=== PATIENT | male | born 1970 | race Caucasian/White ===

== ENCOUNTER 2016-10-31 18:27 | Inpatient (IN) | payer OTHER ==
[~2016-10-31] VITALS: Ht 182.9 cm; Wt 69.0 kg
[2016-10-31 18:39] VITALS: O2SAT 98
[2016-10-31 18:40] VITALS: O2SAT 98
[2016-10-31] MEDS ORDERED: levETIRAcetam 1000 MG INJ 100 ML IV ONE (18:45)
[2016-10-31] MEDS ORDERED: IOHEXOL 350 MG/ML 10 ML VIAL (for RAD DIAG) IV ONE (18:48)
--- NOTE | 2016-10-31 18:50 | RADRPT ---
EXAM DATE/TIME: 10/31/2016 18:22 [facility] COMPARISON: No previous studies available for comparison. INDICATIONS : Evaluate pelvis for trauma Trauma Alert MEDICAL HISTORY : None. SURGICAL HISTORY : None. ENCOUNTER: Initial ACUITY: 1 day PAIN SCORE: Non-responsive. LOCATION: Pelvis FINDINGS: A single frontal view of the pelvis demonstrates no evidence of fracture. The bony pelvic ring is in tact. Bony mineralization is normal. The soft tissues are intact. CONCLUSION: Artifact from backboard otherwise negative for fracture.. Luis Oro MD FACR on October 31, 2016 at 18:48 Board Certified Radiologist. This report was verified electronically.
--- NOTE | 2016-10-31 18:51 | RADRPT ---
EXAM DATE/TIME: 10/31/2016 18:22 [facility] COMPARISON: No previous studies available for comparison. INDICATIONS : Evaluate chest for trauma, fell Trauma Alert MEDICAL HISTORY : None. SURGICAL HISTORY : None. ENCOUNTER: Initial ACUITY: 1 day PAIN SCORE: Non-responsive. LOCATION: chest FINDINGS: A single view of the chest demonstrates the lungs to be symmetrically aerated without evidence of mas s, infiltrate or effusion. The cardiomediastinal contours are unremarkable. Osseous structures are intact. CONCLUSION: Artifact from backboard otherwise negative for pneumothorax. Luis Oro MD FACR on October 31, 2016 at 18:49 Board Certified Radiologist. This report was verified electronically.
[2016-10-31 18:52] LABS: I-STAT POTASSIUM 4.3 MMOL/L (3.5-4.9)
[2016-10-31 18:54] LABS: AUTOMATED NEUTROPHIL # 7.4 TH/MM3 (1.8-7.7); BASOPHIL # 0.1 TH/MM3 (0-0.2); BASOPHIL % 0.5 % (0.0-2.0); EOSINOPHIL # 0.2 TH/MM3 (0-0.4); EOSINOPHIL % 1.5 % (0.0-4.0); HEMATOCRIT 39.3 % (39.0-51.0); HEMO FLAGS DIFF FINAL; LYMPH % 24.8 % (9.0-44.0); LYMPHOCYTE # 2.7 TH/MM3 (1.0-4.8); MEAN CELL VOLUME 80.4 FL (80.0-100.0); MEAN CORPUSCULAR HEMOGLOBIN 26.6 PG (27.0-34.0); MONO % 6.2 % (0.0-8.0); PLATELET COUNT 426 TH/MM3 (150-450); RED CELL DISTRIBUTION WIDTH 17.8 % (11.6-17.2)
--- NOTE | 2016-10-31 18:58 | RADRPT ---
EXAM DATE/TIME: 10/31/2016 18:39 [facility] COMPARISON: No previous studies available for comparison. INDICATIONS : Trauma, seizure fell out of bunkbed. RADIATION DOSE: 56.35 CTDIvol (mGy) MEDICAL HISTORY : Non-responsive. SURGICAL HISTORY : Non-responsive. ENCOUNTER: Initial ACUITY: 1 day PAIN SCALE: Non-responsive LOCATION: cranial TECHNIQUE: Multiple contiguous axial images were obtained of the head. Using automated exposure control and adj ustment of the mA and/or kV according to patient size, radiation dose was kept as low as reasonably a chievable to obtain optimal diagnostic quality images. DICOM format image data is available electro nically for review and comparison. FINDINGS: CEREBRUM: The ventricles are normal for age. No evidence of midline shift, mass lesion, hemorrhage or acute in farction. No extra-axial fluid collections are seen. POSTERIOR FOSSA: The cerebellum and brainstem are intact. The 4th ventricle is midline. The cerebellopontine angle i s unremarkable. EXTRACRANIAL: The visualized portion of the orbits is intact. SKULL: The calvaria is intact. No evidence of skull fracture. CONCLUSION: Negative for acute traumatic injury. Luis Oro MD FACR on October 31, 2016 at 18:56 Board Certified Radiologist. This report was verified electronically.
--- NOTE | 2016-10-31 19:01 | PD ---
HPI Chief Complaint: Trauma (Alert) Time Seen by Provider: 18:34 Travel History International Travel<30 days: No Contact w/Intl Traveler<30days: No Traveled to known affect area: No History of Present Illness HPI This is a 54-[id number]-uktv-old male. Was brought in as a trauma alert from the nursing home. The patient had a seizure while in his bunk bed. He probably fell 6 feet from the bunk bed and was postictal when he got up to stand and walk, he walked out of his room and flipped over the balcony: 10 feet below. He reports pain in his head neck bilateral upper shoulders and upper thoracic spine and lower thoracic spine. There is weakness in his bilateral upper extremities. Trauma alert was called for suspected spinal cord injury. Allergies-Medications (Allergen,Severity, Reaction): Coded Allergies: No Known Allergies (Unverified , 10/31/16) Review of Systems Except as stated in HPI: all other systems reviewed are Neg General / Constitutional: No: Fever, Chills HENT: Positive: Headaches, Neck Pain Cardiovascular: No: Chest Pain or Discomfort, Palpitations, Irregular Rhythm Gastrointestinal: No: Nausea, Vomiting, Abdominal Pain Musculoskeletal: Positive: Weakness, Pain (bilateral upper extremities bilateral shoulders upper and lower back) Neurologic: Positive: Weakness (bilateral upper extremities), Headache, Seizures, Sensory Disturbance (bilateral upper extremities) Physical Exam Narrative GENERAL: Well developed well-nourished male in C-spine backboard immobilization SKIN: Focused skin assessment warm/dry. HEAD: Atraumatic. Normocephalic. EYES: No scleral icterus. No injection or drainage. ENT: No nasal bleeding or discharge. Mucous membranes pink and moist. NECK: Trachea midline. C-collar immobilized. CARDIOVASCULAR: Regular rate and rhythm. No murmur appreciated. RESPIRATORY: No accessory muscle use. Clear to auscultation. Breath sounds equal bilaterally. GASTROINTESTINAL: Abdomen soft, non-tender, nondistended. Hepatic and splenic margins not palpable. MUSCULOSKELETAL: No obvious deformities. No clubbing. No cyanosis. No edema. BACK: On log roll, patient has subjective tenderness in his mid thoracic and lower lumbar spine. There is no bony step-offs. NEUROLOGICAL: Awake and alert. Patient has 3 out of 5 strength in his bilateral upper extremity is. The patient also has decreased sensation in his thumb and first finger of his left arm. Data Data Last Documented VS Vital Signs Date Time Temp Pulse Resp B/P Pulse Ox O2 Delivery O2 Flow Rate FiO2 10/31/16 18:40 98 2.00 10/31/16 18:39 Nasal Cannula Orders Fentanyl Inj (Fentanyl Inj) (10/31/16 18:32) I-Stat Profile (10/31/16 18:35) I-Stat Creatinine (10/31/16 18:35) Complete Blood Count With Diff (10/31/16 18:35) Prothrombin Time / Inr (Pt) (10/31/16 18:35) Act Partial Throm Time (Ptt) (10/31/16 18:35) Type And Screen (10/31/16 18:35) Chest, Single Ap (10/31/16 18:35) Ct Brain W/O Iv Contrast(Rout) (10/31/16 18:35) Ct Cerv Spine W/O Contrast (10/31/16 18:35) Ct Abd/Pel W Iv Contrast(Rout) (10/31/16 18:35) Ct Thorax/ Chest W Iv Contrast (10/31/16 18:35) Ct Thor Spine W/O Contrast (10/31/16 18:35) Ct Lumb Spine W/O Contrast (10/31/16 18:35) Iv Access Insert/Monitor (10/31/16 18:35) Ecg Monitoring (10/31/16 18:35) Oximetry (10/31/16 18:35) Oxygen Administration (10/31/16 18:35) Levetiracetam 1000 Mg Inj (Keppra 1000 M (10/31/16 18:45) Pelvis, Ap Only (Routine) (10/31/16 ) Mri C Spine W/O Contrast (10/31/16 18:57) Mri T Spine W/O Contrast (10/31/16 18:57) Mri L Spine W/O Contrast (10/31/16 18:57) Admit Order (Ed Use Only) (10/31/16 18:59) Labs Laboratory Tests Test 10/31/16 18:31 White Blood Count 11.0 TH/MM3 Red Blood Count 4.90 MIL/MM3 Hemoglobin 13.0 GM/DL Bedside Hemoglobin 14.3 G/DL Hematocrit 39.3 % Bedside Hematocrit 42.0 % Mean Corpuscular Volume 80.4 FL Mean Corpuscular Hemoglobin 26.6 PG Mean Corpuscular Hemoglobin 33.0 % Concent Red Cell Distribution Width 17.8 % Platelet Count 426 TH/MM3 Mean Platelet Volume 8.1 FL Neutrophils (%) (Auto) 67.0 % Lymphocytes (%) (Auto) 24.8 % Monocytes (%) (Auto) 6.2 % Eosinophils (%) (Auto) 1.5 % Basophils (%) (Auto) 0.5 % Neutrophils # (Auto) 7.4 TH/MM3 Lymphocytes # (Auto) 2.7 TH/MM3 Monocytes # (Auto) 0.7 TH/MM3 Eosinophils # (Auto) 0.2 TH/MM3 Basophils # (Auto) 0.1 TH/MM3 CBC Comment DIFF FINAL Differential Comment Bedside Sodium 139 MMOL/L Bedside Potassium 4.3 MMOL/L Bedside Chloride 99 MMOL/L Bedside Blood Urea Nitrogen 12 MG/DL Bedside Creatinine 0.9 MG/DL Bedside Glucose 173 MG/DL Blood Type A POSITIVE MDM Medical Screen Exam Complete: Yes Emergency Medical Condition: Yes Differential Diagnosis Spinal cord injury versus central cord syndrome versus thoracic spine fracture versus lumbar spine fracture versus intracranial hemorrhage versus seizure Narrative Course Additional male who is brought in from the nursing home as a trauma alert. The patient apparently sees fell out of his bunkbed then staggered over and rolled off the rail falling down to the ground floor. The patient reports weakness of his bilateral upper extremities. CT scan of brain and spine are negative for acute fracture or injury. MRI of the C-spine, T-spine, L-spine are pending at this time. The patient will be admitted to the trauma service. The patient will be cared for by Dr. Son's, trauma surgeon who was present when he arrived. Trauma Alert - Level One Trauma Alert Level One: Full trauma team activate Time Surgeon Summoned: 18:15 Diagnosis Diagnosis: Primary Impression: suspected spinal cord injury Additional Impressions: Seizure mechanical fall of 10 feet Admitting Physician Requests: Admit Arthur Gomes MD Oct 31, 2016 19:01
[2016-10-31 19:10] LABS: APTT (PATIENT) 22.8 SEC (24.3-30.1); PROTHROMBIN TIME - PATIENT 10.9 SEC (9.8-11.6)
[2016-10-31] MEDS ORDERED: HYDROmorphone HCL PF 1 MG/ML VIAL ONE (19:10)
--- NOTE | 2016-10-31 19:13 | RADRPT ---
EXAM DATE/TIME: 10/31/2016 18:43 [facility] COMPARISON: No previous studies available for comparison. INDICATIONS : Trauma, seizure fell out of bunkbed. RADIATION DOSE: 45.18 CTDIvol (mGy) MEDICAL HISTORY : Non-responsive. SURGICAL HISTORY : Non-responsive. ENCOUNTER: Initial ACUITY: 1 day PAIN SCALE: Non-responsive LOCATION: neck TECHNIQUE: Volumetric scanning of the cervical spine was performed. Multiplanar reconstructions in the sagittal, coronal and oblique axial planes were performed. Using automated exposure control and adjustment o f the mA and/or kV according to patient size, radiation dose was kept as low as reasonably achievable to obtain optimal diagnostic quality images. DICOM format image data is available electronically f or review and comparison. FINDINGS: VERTEBRAE: Normal vertebral body height. ALIGNMENT: No evidence of subluxation. C2-C3: The bony spinal canal is normal in size. No evidence of disc bulge or herniation. The neural forami na are bilaterally patent. C3-C4: The bony spinal canal is normal in size. No evidence of disc bulge or herniation. The neural forami na are bilaterally patent. C4-C5: Is there large central disc herniation impinging on anterior thecal space. There is no evidence for fracture. C5-C6: There is significant spinal stenosis the bilateral neural foramina encroachment. C6-C7: Moderate uncinate ridging is present with mild spinal stenosis. There is mild bilateral neural rosa madisyn encroachment. C7-T1: The bony spinal canal is normal in size. No evidence of disc bulge or herniation. The neural forami na are bilaterally patent. CONCLUSION: There are spinal stenosis at C4-C5 and moderate to severe spinal stenosis at C5-C6. MRI is pending. Luis Oro MD FACR on October 31, 2016 at 19:10 Board Certified Radiologist. This report was verified electronically.
[2016-10-31] MEDS ORDERED: HYDROmorphone HCL PF 1 MG/ML VIAL IV PUSH PRN (19:15)
[2016-10-31] MEDS ORDERED: LACTULOSE SYRUP 20 GM/30 ML CUP PO PRN (19:15)
[2016-10-31] MEDS ORDERED: ONDANSETRON HCL 4 MG/2 ML VIAL IV PRN (19:15)
[2016-10-31] MEDS ORDERED: CHLORHEXIDINE GLUCONATE 2 % 1 PACK (2 CLOTHS) TOP PRN (19:15)
[2016-10-31] MEDS ORDERED: BISACODYL 10 MG SUPP RECTAL PRN (19:15)
[2016-10-31] MEDS ORDERED: MISCELLANEOUS NURSING INFORMATION XX SCH (19:15)
[2016-10-31] MEDS ORDERED: SENNOSIDES 8.6 MG TAB PO PRN (19:15)
[2016-10-31] MEDS ORDERED: MAGNESIUM HYDROXIDE SUSP 30 ML CUP PO PRN (19:15)
--- NOTE | 2016-10-31 19:17 | RADRPT ---
EXAM DATE/TIME: 10/31/2016 18:48 [facility] COMPARISON: No previous studies available for comparison. INDICATIONS : Trauma,seizure fell off bunkbed. IV CONTRAST: 100 cc Omnipaque 350 (iohexol) IV RADIATION DOSE: 5.89 CTDIvol (mGy) MEDICAL HISTORY : Non-responsive. SURGICAL HISTORY : Non-responsive. ENCOUNTER: Initial ACUITY: 1 day PAIN SCALE: Non-responsive LOCATION: chest TECHNIQUE: Volumetric scanning of the chest was performed. Using automated exposure control and adjustment of t he mA and/or kV according to patient size, radiation dose was kept as low as reasonably achievable to obtain optimal diagnostic quality images. DICOM format image data is available electronically for review and comparison. FINDINGS: Moderate emphysematous changes are present. There is no pneumothorax. Mediastinum is unremarkable. Review of bone windows reveals no evidence for fracture. CONCLUSION: Emphysematous changes otherwise negative.. Luis Oro MD FACR on October 31, 2016 at 19:14 Board Certified Radiologist. This report was verified electronically.
--- NOTE | 2016-10-31 19:22 | RADRPT ---
EXAM DATE/TIME: 10/31/2016 18:48 [facility] COMPARISON: No previous studies available for comparison. INDICATIONS : Trauma, seizure fell off bunkbed. IV CONTRAST: 100 cc Omnipaque 350 (iohexol) IV ; Cumulative dose for multiple exams. ORAL CONTRAST: No oral contrast ingested. RADIATION DOSE: 5.89 CTDIvol (mGy) ; Combined studies - Thorax/Abdomen/Pelvis MEDICAL HISTORY : Non-responsive. SURGICAL HISTORY : Non-responsive. ENCOUNTER: Initial ACUITY: 1 day PAIN SCALE: Non-responsive LOCATION: abdomin TECHNIQUE: Volumetric scanning of the abdomen and pelvis was performed. Using automated exposure control and ad justment of the mA and/or kV according to patient size, radiation dose was kept as low as reasonably achievable to obtain optimal diagnostic quality images. DICOM format image data is available electro nically for review and comparison. FINDINGS: The lung base is are clear. There is no pericardial effusion The liver, spleen are unremarkable Consultations are seen throughout the pancreas There is symmetrical renal function There is no free fluid The pelvic contents unremarkable. Review of bone windows reveals degenerative changes with lower lum bar spinal stenosis. CONCLUSION: Negative for acute traumatic injury. Luis Oro MD FACR on October 31, 2016 at 19:15 Board Certified Radiologist. This report was verified electronically.
--- NOTE | 2016-10-31 19:32 | HHI.HP ---
History of Present Illness Primary Care Physician Unknown Admission Diagnosis suspected spinal cord contusion, seizure, mechanical fall Diagnoses: History of Present Illness 46 y.o male fell total 16 feet in correction after a seizure-c/o severe pain upper back,c spine b/l shoulders,HD normal,weakness 3/5 upper extremities b/l no weakness lower extremities-known seizure disorder Review of Systems Constitutional: DENIES: Diaphoretic episodes, Fatigue, Fever, Weight gain, Weight loss, Chills, Dizziness, Change in appetite, Night Sweats Endocrine: DENIES: Heat/cold intolerance, Polydipsia, Polyuria, Polyphagia Eyes: DENIES: Blurred vision, Diplopia, Eye inflammation, Eye pain, Vision loss , Photosensitivity, Double Vision Ears, nose, mouth, throat: DENIES: Tinnitus, Hearing loss, Vertigo, Nasal discharge, Oral lesions, Throat pain, Hoarseness, Ear Pain, Running Nose, Epistaxis, Sinus Pain, Toothache, Odynophagia Respiratory: DENIES: Apneas, Cough, Snoring, Wheezing, Hemoptysis, Sputum production, Shortness of breath Cardiovascular: DENIES: Chest pain, Palpitations, Syncope, Dyspnea on Exertion , PND, Lower Extremity Edema, Orthopnea, Claudication Gastrointestinal: DENIES: Abdominal pain, Black stools, Bloody stools, Constipation, Diarrhea, Nausea, Vomiting, Difficulty Swallowing, Anorexia Genitourinary: DENIES: Sexual dysfunction, Urinary frequency, Urinary incontinence, Urgency, Hematuria, Dysuria, Nocturia, Penile Discharge, Testicular Pain, Testicular Swelling Musculoskeletal: DENIES: Joint pain, Muscle aches, Stiffness, Joint Swelling, Back pain, Neck pain Integumentary: DENIES: Abnormal pigmentation, Nail changes, Pruritus, Rash Hematologic/lymphatic: DENIES: Bruising, Lymphadenopathy Immunologic/allergic: DENIES: Eczema, Urticaria Neurologic: DENIES: Abnormal gait, Headache, Localized weakness, Paresthesias, Seizures, Speech Problems, Tremor, Poor Balance Psychiatric: DENIES: Anxiety, Confusion, Mood changes, Depression, Hallucinations, Agitation, Suicidal Ideation, Homicidal Ideation, Delusions Past Family Social History Allergies: Coded Allergies: No Known Allergies (Unverified , 10/31/16) Past Medical History seizure disorder Past Surgical History none Reported Medications keppra Family History none Social History inmate correction Physical Exam Vital Signs Vital Signs Date Time Temp Pulse Resp B/P Pulse Ox O2 Delivery O2 Flow Rate FiO2 10/31/16 18:40 98 2.00 10/31/16 18:39 98 Nasal Cannula 2.00 Physical Exam GENERAL: This is a well-nourished, well-developed patient, in no apparent distress. SKIN: No rashes, ecchymoses or lesions. Cool and dry. HEAD: Atraumatic. Normocephalic. No temporal or scalp tenderness. EYES: Pupils equal round and reactive. Extraocular motions intact. No scleral icterus. No injection or drainage. ENT: Nose without bleeding, purulent drainage or septal hematoma. Uvula midline. Airway patent. NECK: Trachea midline. No JVD or lymphadenopathy. Supple, nontender, no meningeal signs. CARDIOVASCULAR: Regular rate and rhythm without murmurs, gallops, or rubs. RESPIRATORY: Clear to auscultation. Breath sounds equal bilaterally. No wheezes , rales, or rhonchi. GASTROINTESTINAL: Abdomen soft, non-tender, nondistended.. No guarding. MUSCULOSKELETAL: Extremities without clubbing, cyanosis, or edema. No joint tenderness, effusion, or edema noted.. NEUROLOGICAL: Awake and alert. Cranial nerves II through XII intact. Motor and sensory grossly within normal limits.3/5 weakness-upper b/l,no weakness lower extremities Normal speech. Laboratory Laboratory Tests Test 10/31/16 18:31 White Blood Count 11.0 Red Blood Count 4.90 Hemoglobin 13.0 Bedside Hemoglobin 14.3 Hematocrit 39.3 Bedside Hematocrit 42.0 Mean Corpuscular Volume 80.4 Mean Corpuscular Hemoglobin 26.6 Mean Corpuscular Hemoglobin 33.0 Concent Red Cell Distribution Width 17.8 Platelet Count 426 Mean Platelet Volume 8.1 Neutrophils (%) (Auto) 67.0 Lymphocytes (%) (Auto) 24.8 Monocytes (%) (Auto) 6.2 Eosinophils (%) (Auto) 1.5 Basophils (%) (Auto) 0.5 Neutrophils # (Auto) 7.4 Lymphocytes # (Auto) 2.7 Monocytes # (Auto) 0.7 Eosinophils # (Auto) 0.2 Basophils # (Auto) 0.1 CBC Comment DIFF FINAL Differential Comment Prothrombin Time 10.9 Prothromb Time International 1.0 Ratio Activated Partial 22.8 Thromboplast Time Bedside Sodium 139 Bedside Potassium 4.3 Bedside Chloride 99 Bedside Blood Urea Nitrogen 12 Bedside Creatinine 0.9 Bedside Glucose 173 Blood Type A POSITIVE Result Diagram: 10/31/161830 Imaging Last Impressions Head CT 10/31/161834 Signed Impressions: Service Date/Time: Monday, October 31, 2016 18:39 - CONCLUSION: Negative for acute traumatic injury. Luis Oro MD FACR Chest X-Ray 10/31/161834 Signed Impressions: Service Date/Time: Monday, October 31, 2016 18:22 - CONCLUSION: Artifact from backboard otherwise negative for pneumothorax. Luis Oro MD FACR Pelvis X-Ray 10/31/16 0000 Signed Impressions: Service Date/Time: Monday, October 31, 2016 18:22 - CONCLUSION: Artifact from backboard otherwise negative for fracture.. Luis Oro MD FACR Assessment and Plan Assessment and Plan Spinal cord injury spinal stenosis C4-5, C5-6 stat MRI Cspine admit to ICU pain control neuro checks follow MRI results d/w Kimberley Rodrigues MD Oct 31, 2016 19:32
--- NOTE | 2016-10-31 19:41 | RADRPT ---
EXAM DATE/TIME: 10/31/2016 18:39 [facility] COMPARISON: No previous studies available for comparison. INDICATIONS : Trauma,seizure fell out of bunkbed. RADIATION DOSE: CTDIvol (mGy) ; Reconstructed from previous dataset MEDICAL HISTORY : Non-responsive. SURGICAL HISTORY : Non-responsive. ENCOUNTER: Initial ACUITY: 1 day PAIN SCALE: Non-responsive LOCATION: upper back TECHNIQUE: Volumetric scanning of the thoracic spine was performed. Multiplanar reconstructions in the sagittal , coronal and oblique axial planes were performed. Using automated exposure control and adjustment o f the mA and/or kV according to patient size, radiation dose was kept as low as reasonably achievable to obtain optimal diagnostic quality images. DICOM format image data is available electronically f or review and comparison. FINDINGS: The vertebral bodies of the thoracic spine are in normal alignment without evidence of subluxation. Vertebral body height is maintained. No fractures are seen. There are moderate degenerative changes in the lower cervical spine. There is minimal loss of verteb ral height at T6 may Schmorl's type endplate depression. There are calcified from T3-T9. There are no significant posterior osteophytes. I do not see thoracic spine fracture. Do not see thoracic spi nal stenosis. CONCLUSION: Minimal Schmorl's type endplate depression at T6, negative for acute traumatic injury. Luis Oro MD FACR on October 31, 2016 at 19:37 Board Certified Radiologist. This report was verified electronically.
--- NOTE | 2016-10-31 19:53 | RADRPT ---
EXAM DATE/TIME: 10/31/2016 18:39 [facility] COMPARISON: No previous studies available for comparison. INDICATIONS : Trauma,seizure fell from [id number]. RADIATION DOSE: CTDIvol (mGy) ; Reconstructed from previous dataset MEDICAL HISTORY : Non-responsive. SURGICAL HISTORY : Non-responsive. ENCOUNTER: Initial ACUITY: 1 day PAIN SCALE: Non-responsive LOCATION: back TECHNIQUE: Volumetric scanning of the lumbar spine was performed. Multiplanar reconstructions in the sagittal, coronal and oblique axial planes were performed. Using automated exposure control and adjustment of the mA and/or kV according to patient size, radiation dose was kept as low as reasonably achievable t o obtain optimal diagnostic quality images. DICOM format image data is available electronically for review and comparison. FINDINGS: VERTEBRAE: Normal vertebral body height. ALIGNMENT: No evidence of subluxation. T12-L1: The thecal sac has a normal diameter. No evidence of disc bulge or protrusion. The neural foramina are patent bilaterally. L1-L2: The thecal sac has a normal diameter. No evidence of disc bulge or protrusion. The neural foramina are patent bilaterally. L2-L3: There is loss of disc space height with moderate and osteophytes. L3-L4: Moderate loss of disc space height without significant posterior spinal stenosis L4-L5: Loss of disc space height with moderate degenerative changes in the facets. L5-S1: The thecal sac has a normal diameter. No evidence of disc bulge or protrusion. The neural foramina are patent bilaterally. CONCLUSION: Degenerative changes, negative for acute traumatic injury. Luis Oro MD FACR on October 31, 2016 at 19:51 Board Certified Radiologist. This report was verified electronically.
[2016-10-31 20:00] VITALS: BP 130/84; PULSE 76; RESP 15; TEMP 98.7; O2SAT 97
--- NOTE | 2016-10-31 20:08 | RADRPT ---
EXAM DATE/TIME: 10/31/2016 19:29 [facility] COMPARISON: No previous studies available for comparison. INDICATIONS : Trauma. MEDICAL HISTORY : Seizures. SURGICAL HISTORY : None. ENCOUNTER: Initial ACUITY: 1 day PAIN SCORE: 2/10 LOCATION: Bilateral neck region. TECHNIQUE: Multiplanar, multisequence MRI examination of the cervical spine was performed. FINDINGS: VERTEBRAE: Normal vertebral body height. Homogeneous marrow signal. ALIGNMENT: No evidence of subluxation. CORD: Normal configuration and signal. POST FOSSA: The cerebellar tonsils are normal in position. C2-C3: The thecal sac has a normal configuration. There is no evidence of disc herniation or spinal canal s tenosis. The neural foramina are patent bilaterally. C3-C4: The thecal sac has a normal configuration. There is no evidence of disc herniation or spinal canal s tenosis. The neural foramina are patent bilaterally. C4-C5: There is the large disc herniation present impinging on the anterior thecal space and severely deform ing the cord. There is mildly increased signal in the right lateral half of the cord. C5-C6: Mild interspace ridging is present with minimal spinal stenosis and bilateral neural foramina encroac hment. C6-C7: Mild interspace ridging is present with minimal spinal stenosis and bilateral neural foramina encroac hment. C7-T1: The thecal sac has a normal configuration. There is no evidence of disc herniation or spinal canal s tenosis. The neural foramina are patent bilaterally. CONCLUSION: Large disc herniation causing significant spinal stenosis and minimal increased signal in the right l ateral half of the cord. Luis Oro MD FACR on October 31, 2016 at 20:05 Board Certified Radiologist. This report was verified electronically.
[2016-10-31] MEDS: DOCUSATE SODIUM 50 MG/SENNA 8.6 MG TAB PO SCH (20:53)
[2016-10-31] MEDS: levETIRAcetam INJ 500 MG in SODIUM CHLORIDE 0.9% INJ 100 ML IV SCH (20:53)
[2016-10-31] MEDS: HYDROmorphone HCL PF 1 MG/ML VIAL IV PUSH PRN (20:54)
[2016-10-31] MEDS: SODIUM CHLOR 0.9% 1000 ML INJ 1,000 ML IV SCH (20:59)
[2016-10-31 22:00] VITALS: PULSE 72
[2016-11-01] VITALS (10 sets, daily range): BP systolic 126–145; BP diastolic 82–92; PULSE 59–96; RESP 12–24; TEMP 97.8–98.7; O2SAT 98
[2016-11-01] MEDS: HYDROmorphone HCL PF 1 MG/ML VIAL IV PUSH PRN ×4 (00:56→12:43)
[2016-11-01] MEDS: SODIUM CHLOR 0.9% 1000 ML INJ 1,000 ML IV SCH ×2 (03:05→11:05)
[2016-11-01] MEDS: CHLORHEXIDINE GLUCONATE 2 % 1 PACK (2 CLOTHS) TOP SCH (04:00)
[2016-11-01 04:58] LABS: BICARBONATE 26.5 MEQ/L (21.0-32.0); POTASSIUM 3.9 MEQ/L (3.5-5.1)
[2016-11-01 05:56] LABS: AUTOMATED NEUTROPHIL # 5.8 TH/MM3 (1.8-7.7); BASOPHIL % 0.4 % (0.0-2.0); EOSINOPHIL # 0.3 TH/MM3 (0-0.4); EOSINOPHIL % 2.7 % (0.0-4.0); HEMATOCRIT 35.1 % (39.0-51.0); HEMO FLAGS DIFF FINAL; LYMPHOCYTE # 3.4 TH/MM3 (1.0-4.8); MEAN CELL VOLUME 81.3 FL (80.0-100.0); MEAN CORPUSCULAR HEMOGLOBIN 26.9 PG (27.0-34.0); MEAN CORPUSCULAR HGB CONC 33.1 % (32.0-36.0); MONO % 9.9 % (0.0-8.0); PLATELET COUNT 354 TH/MM3 (150-450); RED BLOOD COUNT 4.32 MIL/MM3 (4.50-5.90); WHITE BLOOD COUNT 10.5 TH/MM3 (4.0-11.0)
[2016-11-01] MEDS: DOCUSATE SODIUM 50 MG/SENNA 8.6 MG TAB PO SCH (07:53)
[2016-11-01] MEDS: levETIRAcetam INJ 500 MG in SODIUM CHLORIDE 0.9% INJ 100 ML IV SCH (07:53)
[2016-11-01] MEDS ORDERED: PROPOFOL 200 MG/20 ML AMP IV ONE (12:00)
[2016-11-01] MEDS ORDERED: ePHEDrine/NS 25 MG/5 ML SYR IV ONE (12:00)
[2016-11-01] MEDS ORDERED: LACTATED RINGER'S 1000 ML INJ 1,000 ML IV ONE (12:00)
[2016-11-01] MEDS ORDERED: ONDANSETRON HCL 4 MG/2 ML VIAL IV PUSH ONE (12:00)
[2016-11-01] MEDS ORDERED: PHENYLEPH/NS 1000 MCG/10 ML SYR IV ONE (12:00)
[2016-11-01] MEDS ORDERED: NEOSTIGMINE 3 MG/3 ML SYR IV ONE (12:00)
--- NOTE | 2016-11-01 12:26 | MB ---
cc: MARLEN PELAEZ M.D. DATE OF CONSULTATION 11/01/2016 REASON FOR CONSULTATION Seizure HISTORY The patient is a 46-year-old man incarcerated who came in as a trauma alert from custodial. He apparently had a seizure while in his bunk-bed and fell a number of feet. Apparently was postictal, unable to stand or walk and then apparently walked out of his room, flipped over the balcony another 10 feet. He has a known history of epilepsy per patient. Four years ago, he states he had admissions over at [facility]. He denies any drug allergies. He states when he was not incarcerated, he had issues with taking Keppra to the point where he was not able to get it, but since his incarceration, he has been receiving the medicine recently. I am not sure what that means, but apparently is on Keppra 500 twice a day. SOCIAL HISTORY He states he is . He is incarcerated. PHYSICAL EXAM On exam, vitals temperature 97.8, heart rate 64, respiratory rate 18, blood pressure 145/88. GENERAL: He is awake and alert. He is fluent. HEAD, EYES, EARS, NOSE, AND THROAT: Pupils reactive. Face symmetrical. Tongue midline. MOTOR: He seems to move everything equally. DTRs are brisk. Gait is withheld. He has a collar on this neck. His C-spine MRI shows a large disk herniation causing significant stenosis and minimal increased signal in the right lateral half of the cord. Abdomen and pelvis CT was negative. Chest CT, emphysematous changes, but otherwise unremarkable. CT of the head did not show any acute findings. IMPRESSION/PLAN A 46-year-old male with a history of epilepsy, etiology is really unknown. At this point, we will maintain seizure precautions. Continue Keppra 500 mg q12, get an EEG. I think at some point, the issue would be if he is compliant with the medication, but he needs to be monitored for seizures. In any case, use Ativan should he have a prolonged witnessed event. We will defer any workup for his neck to neurosurgery. Given that he has some neck issues going on at this point in time, I may go ahead and just up his Keppra to 750 b.i.d. Please call me with any questions or concerns. MD TOMEKA Rodriguez /11:09 AM /12:24 PM
--- NOTE | 2016-11-01 12:30 | OTSOAPIP ---
1130 AM PATIENT CURRENTLY HAVING EEG AND SCHEDULED FOR OR FOR CERVICAL FUSION. Therapist: Stephanie Myers OTR/L Signature on file
[2016-11-01] MEDS ORDERED: GENTAMICIN SULFATE 80 MG/2 ML VIAL ONE (14:06)
[2016-11-01] MEDS ORDERED: MIDAZOLAM HCL 2 MG/2 ML VIAL ONE (14:06)
[2016-11-01] MEDS ORDERED: GELFOAM SIZE 100 ONE (14:06)
[2016-11-01] MEDS ORDERED: MICROFIBRILLAR COLLAGEN HEMOSTAT 70 X 35 MM BANDAGE ONE (14:06)
[2016-11-01] MEDS ORDERED: THROMBIN (TOPICAL) 5,000 UNIT VIAL ONE (14:06)
[2016-11-01] MEDS ORDERED: ARTIFICIAL TEARS OPTH OINT 3.5 APPLIC/3.5 GM TUBO ONE (14:12)
[2016-11-01] MEDS ORDERED: fentaNYL CITRATE 250 MCG/5 ML AMP ONE ×2 (14:12→15:25)
[2016-11-01] MEDS ORDERED: ACETAMINOPHEN 1000 MG/100 ML VIAL IV ONE (14:12)
[2016-11-01] MEDS ORDERED: FAMOTIDINE 20 MG/2 ML VIAL ONE (14:12)
[2016-11-01] MEDS ORDERED: VANCOMYCIN 500 MG VIAL ONE (14:15)
[2016-11-01] MEDS ORDERED: ceFAZolin 2 GM PREMIX 50 ML ONE (14:15)
[2016-11-01] MEDS ORDERED: levETIRAcetam 500 MG/5 ML VIAL IV ONE (15:39)
--- NOTE | 2016-11-01 15:56 | MB ---
cc: SUSANNE DIOR M.D., RONA E. MD AKA: Yaniv Mcgowan DATE OF CONSULTATION: 10/31/2016 REQUESTING PHYSICIAN: Dr. Sibley REASON FOR CONSULTATION: Trauma alert. Fall with spinal cord contusion. HISTORY OF PRESENT ILLNESS The patient is a 46-year-old male brought in from the long term. The patient reportedly suffers from generalized tonic clonic seizures. He fell down following the seizure. Apparently he was on his bunk bed and fell down to the floor. Following the fall he was post ictal. The patient woke up and was unable to stand up or walk. The patient apparently was eventually able to walk out of his room after he recovered from the seizure, but he flipped over the balcony and fell from an estimated height of 10 feet. The patient has a known history of epilepsy. Four weeks ago he was admitted to [facility] for seizures. He is supposed to be taking Keppra but he has not been able to get it prior to being arrested. He has been taking Keppra 500 milligrams twice a day while in long term. CT of the brain did not show any significant brain hemorrhage. CT of the cervical spine showed severe stenosis. A neurosurgical consultation was requested. PAST MEDICAL HISTORY: History of seizure disorder. PAST SURGICAL HISTORY: No prior surgeries. MEDICATIONS: Keppra 500 milligrams twice a day. ALLERGIES: NO KNOWN DRUG ALLERGIES. FAMILY HISTORY: Noncontributory to this trauma. SOCIAL HISTORY: The patient is in long term. He is . Social alcohol use. Tobacco use. REVIEW OF SYSTEMS: Constitutional: DENIES: Diaphoretic episodes, Fatigue, Fever, Weight gain, Weight loss, Chills, Dizziness, Change in appetite, Night Sweats Endocrine: DENIES: Heat/cold intolerance, Polydipsia, Polyuria, Polyphagia Eyes: DENIES: Blurred vision, Diplopia, Eye inflammation, Eye pain, Vision loss , Photosensitivity, Double Vision Ears, nose, mouth, throat: DENIES: Tinnitus, Hearing loss, Vertigo, Nasal discharge, Oral lesions, Throat pain, Hoarseness, Ear Pain, Running Nose, Epistaxis, Sinus Pain, Toothache, Odynophagia Respiratory: DENIES: Apneas, Cough, Snoring, Wheezing, Hemoptysis, Sputum production, Shortness of breath Cardiovascular: DENIES: Chest pain, Palpitations, Syncope, Dyspnea on Exertion , PND, Lower Extremity Edema, Orthopnea, Claudication Gastrointestinal: DENIES: Abdominal pain, Black stools, Bloody stools, Constipation, Diarrhea, Nausea, Vomiting, Difficulty Swallowing, Anorexia Genitourinary: DENIES: Sexual dysfunction, Urinary frequency, Urinary incontinence, Urgency, Hematuria, Dysuria, Nocturia, Penile Discharge, Testicular Pain, Testicular Swelling Musculoskeletal: DENIES: Joint pain, Muscle aches, Stiffness, Joint Swelling, Back pain, Neck pain Integumentary: DENIES: Abnormal pigmentation, Nail changes, Pruritus, Rash Hematologic/lymphatic: DENIES: Bruising, Lymphadenopathy Immunologic/allergic: DENIES: Eczema, Urticaria Neurologic: DENIES: Abnormal gait, Headache, Localized weakness, Paresthesias, Seizures, Speech Problems, Tremor, Poor Balance Psychiatric: DENIES: Anxiety, Confusion, Mood changes, Depression, Hallucinations, Agitation, Suicidal Ideation, Homicidal Ideation, Delusions NEUROLOGIC EXAMINATION The patient is alert, awake. Speech is fluent. Cranial Nerves: Pupils are equal, round, reactive to light. Extraocular movements are intact. There is no nystagmus. There is no papilledema. Face musculature is symmetrical in all branches of the distribution of the facial nerve. Face sensation is symmetrical in a V1, V2 and V3 distribution of the trigeminal nerve to pin prick. The tongue protrudes in the midline and moves normally. The sternocleidomastoid and trapezius are symmetrical. Hearing is grossly intact. There is no evidence of rhinorrhea. There is no evidence of hemotympanum. Cervical spine is supported by a trauma hard collar. Muscle bulk is normal. He has strength of 2 to 3/5 on his deltoids, biceps, triceps, wrist extension 3/5, lower extremity strength is 4/5, iliopsoas, quadriceps, hamstrings, plantar flexion, dorsiflexion. Sensory examination shows hypesthesia diffusely in both upper extremities. Deep tendon reflexes are symmetrical. There is a new responsive plantar stimulation, there is no clonus. Cerebellar examination cannot be performed reliably due to the patient's neurological condition. DIAGNOSTIC IMPRESSION: The patient is a 46 year-old male status post seizure with spinal cord injury. Central cord syndrome. MEDICAL DECISION-MAKING: I recommend neuro checks in a serial fashion. The patient should be admitted to the Intensive Care Unit. An MRI of the cervical spine is recommended. There is significant stenosis and I suspect spinal cord contusion. Ileal stenosis is confirmed on the MRI or disc herniation is seen. I will recommend surgical decompression via an anterior cervical diskectomy and arthrodesis. The step by step details of the procedure, indications, alternative risks, potential complications have been discussed. I have discussed the details including the [id number] details of the surgical procedure, its indications, alternatives, risks, and potential complications. Risks and potential complications include, but are not limited to, infection, blood loss, CSF leak, partial or complete loss of sight in one or both eyes, paresis, paralysis, permanent pain or difficulty swallowing, loss of bowel or bladder function, complications from anesthesia, blood clot, stroke , myocardial infarction, or even . [place] cervical collar Pulmonary. Continue aggressive pulmonary toilette, nasotracheal suction, and breathing treatments with nebulizers. PT and OT evaluation Nutrition. NPO after midnoght Renal. Continue monitor closely urine output, BUN and creatinine Endocrine. Continue Monitor serial Acu checks and SSI as needed in detail ID Continue monitor for signs of infection Continue Protonix for stress ulcer prophylaxis Continue Anmol marvin and SCD's for DVT prophylaxis Susanne Dior MD [facility]/HAYLIE /3:12 PM /3:30 PM RAKAN
--- NOTE | 2016-11-01 17:10 | PD.OP ---
Operative Report Date of Surgery: Nov 01, 2016 Preoperative Diagnosis: Spinal cord injury with disk exreusions at C4-5 and C5-6 Postoperative Diagnosis: Spinal cord injury with disk exreusions at C4-5 and C5-6 Procedure: C4-5, C5-6 anterior cervical discectomy, interbody arthodhesis using PEEK cage filled with autologous bone graft, Simplicity plate and screws. Anesthesia: general Surgeon: Christian Dior Integrity Specialist(s): Elda Leon Operation and Findings: INDICATIONS FOR THE PROCEDURE The patient is a 46 year-old male who presented with intractable neck pain and a cenral cord syndrome as a trauma alert he was found to have large disk extrusion with stenosis and spinal cord compression at C4-5 and C5-6. A surgical decompression and arthrodhesis were indicated. The [id number] details of the procedure, indications, alternatives, risks and potential complications were fully discussed with the patient. The patient fully understood. All The questions were answered. No guarantees were given. The patient voiced requesting the procedure and provided informed consents. The patient was offered the alternative of delaying the procedure and continuing with nonsurgical management. DETAILS OF THE SURGICAL PROCEDURE After the induction of general anesthesia, endotracheal intubation was performed. A Brumfield catheter, bilateral MAICO hose, and sequential compression devices were placed and kept throughout the procedure. Placement of electrodes for neurophysiological monitoring of the somatosensorial evoked potentials. motor evoked potentials, and EMG as well as laryngeal nerve monitoring was achieved. The patient was positioned supine on a Evangelista table with the head over a gel doughnut. All pressure points were carefully padded with eggcrate mattress. The eyes were tapped shut after ointment was applied by the anesthesiologist to prevent corneal abrasion. A Farrah hugger was placed over the exposed lower body to maintain control of the core body temperature. The electrophysiological team placed the needles and electrodes in their proper location and baseline SSEP's and motor evoked potentials were registered prior and after positioning and endotracheal intubation. The anterior cervical region was prepped and draped in the usual sterile fashion. A localizing x-ray was performed with a C-arm. The surgical procedure was performed in several steps as follow: SURGICAL APPROACH A skin incision was made along the medial cervical crease with a #10 blade. The dissection was carried out through the platysma exposing the sternocleidomastoid muscle. The cervical spine was approached following the fascial layers of the neck just medial to the anterior border of the sternocleidomastoid and carotid sheath by a combination of sharp and dull dissection. The omohyoid muscle was identified and carefully dissected laterally and the deep cervical fascia was carefully opened. The longus colli muscles were retracted to each side of the midline. A marker was placed at the disc space C5-6 and a cross-table lateral x-ray performed with a C-arm. SURGICAL DECOMPRESSION In order to decompress the anterior surface of the spinal cord it was necessary to preform a microsurgical resection of the disk at C4-5 and C5-6. At this point in the procedure the operating microscope was draped in the usual sterile fashion and brought to the field. The rest of the surgical procedure was performed using microdissection technique with the exception of the closure. Under the operative microscopic, a self-retaining retractor was placed underneath the longus colli muscle. Anterior osteophite spurs werte carefully removed with the Leksell. The annulus at C4-5 and C5-6 were incised with a #15 blade and microdiscectomy was then carefully carried out using angled curets and pituitary forceps. There was a very large disk extrusion at C4-5 and an osteophitic/disk complex at C5-6 causing mass effect and compression of the dural sac and nerve roots. The posterior longitudinal ligament was then elevated with an angled curet and incised with a 15 bladed knife. A careful resection of the posterior longitudinal ligament was carried out using a thin footplate 2 mm Kerrison. A nerve hook was used to assess the epidural space behind the vertebral bodies C5 and C6 in search for residual disk fragments. The margins of the posterior endplates at C4-5 and C5-6 were carefully drilled and undercut with a TPS drill under high magnification. The decompression was then carried out laterally, and a bilateral foraminotomy was performed with a 2mm thin foot Kerrison. Then the vertebral bodies above and below the disk space were undercut using a 2 mm thin foot Kerrison. The epidural space was the systematically assessed with a nerve hook in search for disk fragments or scar tissue. An excellent decompression was achieved in both, the dural sac and bilateral exiting nerve roots. The incision was then irrigated with a large amount of antibiotic solution INTERBODY ARTHRODHESIS In order to avoid collapse of the disk space which would result in bilateral foraminal stenosis, and to increase the chances of a successful fusion, it was necessary to place an interbody cage filled with autologous bone. At this point of the procedure, the superior and inferior endplates were then evenly decorticated with a TPS drill. The use of a drill in combination with a curette allowed me to systematically remove the cartilaginous endplates, exposing healthy bone for the interbody arthrodesis. Fourteen millimeters distraction pins were then placed at the vertebral bodies adjacent to the disk space, and gentle distraction was applied. The size of the interbody cage was then assessed using different size spacers, and a rasp was used to ensure no residual cartilage. A PEEK cage of the appropriate size was selected, and the interbody arthrodesis was then preformed by carefully impacting a PEEK cage filled with autologous bone graft to the disc spaces C4-5 and C5-6. An excellent position of the cage was achieved. This was was confirmed anatomically by feeling the space posterior to the implant and distance to the anterior surface of the dural sac. Radiological confirmation of the position was performed with a cross lateral xray performed with the C-arm. INTERNAL INSTRUMENTAL FIXATION Once that the interbody device was in an appropriate position, it was necessary to stabilize the spine with anterior instrumentation. Anterior instrumentation has demonstrated to increase the rate of fusion, acelerate the patient's recovery, and decrease the rate of failed interbody grafts. At this point of the procedure, the distance between the vertebral bodies was carefully measures, and a Simplicity plate was brought to the field and presented in front of the vertebral bodies C4 C5 and C6. Business Account Executive holes were then drilled using the TPS drill, and the plate was then secured to the spine using self-drilling, self-tapping screws. Initially, the inferior right screw was inserted, followed by placement of the contralateral upper screw. The remanding screws were sequentially placed in a contra-lateral fashion. A proper purchase was achieved with all screws and the position of the cage, plate and screws, and alignment of the spine was assessed anatomically by direct visualization, and radiologically by performing a cross lateral xray of the cervical spine with the C-arm. CLOSURE The incision was irrigated with several liters of antibiotic solution. Hemostasis was achieved with a bipolar. The screws were locked to prevent backing out. A 7 mm Evangelista-Dee drain was left in the prevertebral space and externalized through a separate stab incision. The incision was then closed in layers. 3-0 Vicryl with interrupted sutures was used to close the platysma and subcutaneous tissue. The skin was closed with 4-0 running subcuticular Vicryl and glue was applied to the skin. The drain was secured with a 3-0 nylon. At the end of the procedure the sponge, needle and instrument counts were all correct. The estimated blood loss was less than 70 cc. No blood transfusion was given. No intraoperative complications occurred. The patient received prophylactic antibiotics. The patient was then extubated and transferred to the recovery room in stable condition. Christian Dior MD Nov 01, 2016 17:10
[2016-11-01] MEDS ORDERED: SODIUM CHLORIDE 0.9% FLUSH 5 ML FLUSH IVF PRN (17:15)
[2016-11-01] MEDS ORDERED: MORPHINE SULFATE 4 MG/ML INJ IV PUSH PRN ×2 (17:15)
[2016-11-01] MEDS ORDERED: ACETAMINOPHEN 325 MG TAB PO PRN (17:15)
[2016-11-01] MEDS: NS + KCL 20 MEQ INJ 1,000 ML IV SCH (17:45)
[2016-11-01] MEDS ORDERED: *morphine SULFATE 8 MG/ML PERIprocedure ONLY ONE (18:13)
[2016-11-01] MEDS ORDERED: DO NOT ADM ANY ANTICOAGULANT DRUGS PRN (18:15)
--- NOTE | 2016-11-01 19:04 | RADRPT ---
EXAM DATE/TIME: 11/01/2016 14:59 [facility] COMPARISON: No previous studies available for comparison. INDICATIONS : Fusion C4,C5 and C5,C6 with screrw and plate placement. MEDICAL HISTORY : trauma. SURGICAL HISTORY : None. ENCOUNTER: Subsequent ACUITY: 2 days PAIN SCORE: Non-responsive. LOCATION: Cervical spine. FINDINGS: 3 magnified C-arm spot views are centered over the cervical spine. An anterior spinal fusion plate wi th intervening bone graft device is noted at C4-C5-C6. Good alignment noted. Surgical drain noted. CONCLUSION: Limited images as detailed above. Jeremie Clay Jr., MD on November 01, 2016 at 19:02 Board Certified Radiologist. This report was verified electronically.
[2016-11-01] MEDS: DOCUSATE SODIUM 100 MG CAP PO SCH (20:12)
[2016-11-01] MEDS: levETIRAcetam 1000 MG INJ 100 ML IV SCH (20:13)
--- NOTE | 2016-11-01 20:35 | HHI.CCPN ---
Subjective 24 Hour Review/Hospital Course 11/01s/p Fall with SCI C4-6 level with weakness UE b/l s/p spinal decompression today resting comfortably no complains Objective Vital Signs Date Time Temp Pulse Resp B/P Pulse Ox O2 Delivery O2 Flow Rate FiO2 11/01/16 18:40 74 14 138/75 100 Nasal Cannula 2 11/01/16 17:37 97.5 Intake and Output 10/31/16 10/31/16 11/01/16 08:00 16:00 00:00 Intake Total 360 ml Balance 360 ml Result Diagram: 11/01/16 0403 11/01/16 0403 Imaging Last 24 hours Impressions Cervical Spine X-Ray 11/01/16 0000 Signed Impressions: Service Date/Time: Tuesday, November 01, 2016 14:59 - CONCLUSION: Limited images as detailed above. 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
[2016-11-01] MEDS: SODIUM CHLORIDE 0.9% FLUSH 5 ML FLUSH IVF SCH (21:00)
[2016-11-01] MEDS: ACETAMINOPHEN/HYDROcodone 325 MG/10 MG TAB PO PRN (21:25)
[2016-11-01] MEDS: ceFAZolin 2 GM PREMIX 50 ML IV SCH (23:53)
[2016-11-01] MEDS: HYDROmorphone HCL PF 1 MG/ML VIAL IV PRN (23:54)
[2016-11-02] VITALS (13 sets, daily range): BP systolic 125–158; BP diastolic 64–88; PULSE 60–104; RESP 10–24; TEMP 98–99.2; O2SAT 96–100
[2016-11-02] MEDS: HYDROmorphone HCL PF 1 MG/ML VIAL IV PRN ×8 (02:35→21:48)
[2016-11-02] MEDS: NS + KCL 20 MEQ INJ 1,000 ML IV SCH ×2 (02:35→12:38)
[2016-11-02] MEDS: CHLORHEXIDINE GLUCONATE 2 % 1 PACK (2 CLOTHS) TOP SCH (04:00)
[2016-11-02] MEDS: ACETAMINOPHEN/HYDROcodone 325 MG/10 MG TAB PO PRN ×5 (04:12→21:47)
[2016-11-02 04:59] LABS: AUTOMATED NEUTROPHIL # 10.6 TH/MM3 (1.8-7.7); BASOPHIL % 0.1 % (0.0-2.0); EOSINOPHIL % 0.1 % (0.0-4.0); HEMO FLAGS DIFF FINAL; LYMPH % 8.1 % (9.0-44.0); MEAN CELL VOLUME 82.1 FL (80.0-100.0); MEAN CORPUSCULAR HGB CONC 31.7 % (32.0-36.0); NEUT % 88.7 % (16.0-70.0); PLATELET COUNT 327 TH/MM3 (150-450); RED BLOOD COUNT 4.63 MIL/MM3 (4.50-5.90); RED CELL DISTRIBUTION WIDTH 18.1 % (11.6-17.2)
[2016-11-02 05:35] LABS: ALKALINE PHOSPHATASE 122 U/L (45-117); ALT (GPT) 34 U/L (12-78); ANION GAP 8 MEQ/L (5-15); AST (GOT) 20 U/L (15-37); BICARBONATE 26.8 MEQ/L (21.0-32.0); BLOOD UREA NITROGEN 7 MG/DL (7-18); CHLORIDE 105 MEQ/L (98-107); GLOMERULAR FILTRATION RATE 84 ML/MIN (>89); MAGNESIUM 2.1 MG/DL (1.5-2.5); POTASSIUM 4.7 MEQ/L (3.5-5.1); SODIUM (NA) 140 MEQ/L (136-145); TOTAL BILIRUBIN ADULT 0.2 MG/DL (0.2-1.0)
[2016-11-02] MEDS: ceFAZolin 2 GM PREMIX 50 ML IV SCH ×2 (06:07→14:40)
[2016-11-02] MEDS: SODIUM CHLORIDE 0.9% FLUSH 5 ML FLUSH IVF SCH ×2 (07:26→21:00)
[2016-11-02] MEDS: levETIRAcetam 1000 MG INJ 100 ML IV SCH ×2 (07:26→20:03)
[2016-11-02] MEDS: PANTOPRAZOLE SOD 40 MG DELAYED RELEASE TAB PO SCH (07:27)
[2016-11-02] MEDS: DOCUSATE SODIUM 100 MG CAP PO SCH ×2 (07:27→20:03)
--- NOTE | 2016-11-02 10:52 | HHI.NSPN ---
(Maria E Wallace) Note Status Status: Progress Note (Maria E Wallace) Interval History Interval History Mr. Sanchez s/p C4-5, C5-6 anterior cervical discectomy, interbody arthodhesis using PEEK cage filled with autologous bone graft, Simplicity plate and screws for cord compression with myelopathy. POD 1, neuro stable, persistent extremity weakness and paresthesias. no new neuro complaints. (Maria E Wallace) Labs, Micro, & Vital Signs Results Date Time Temp Pulse Resp B/P Pulse Ox O2 Delivery O2 Flow Rate FiO2 11/02/16 10:00 103 11/02/16 08:00 98.0 60 10 132/81 98 11/02/16 08:00 60 11/02/16 07:00 Room Air 11/02/16 06:37 19 11/02/16 06:00 74 11/02/16 04:43 16 11/02/16 04:00 98.9 65 24 131/87 99 11/02/16 04:00 77 11/02/16 00:00 99.2 104 20 125/64 96 11/02/16 00:00 77 11/01/16 22:25 16 11/01/16 22:00 89 11/01/16 21:25 98 Nasal Cannula 1.00 11/01/16 20:19 16 11/01/16 20:00 65 11/01/16 20:00 98.7 96 24 137/92 98 11/01/16 19:00 Room Air 11/01/16 18:40 74 14 138/75 100 Nasal Cannula 2 11/01/16 18:30 72 14 148/75 98 Nasal Cannula 4 11/01/16 18:15 69 14 145/78 97 Nasal Cannula 4 11/01/16 18:00 74 14 141/70 97 Nasal Cannula 4 11/01/16 17:37 97.5 74 14 140/87 97 Nasal Cannula 4 11/01/16 12:00 97.8 61 12 129/82 98 11/01/16 12:00 65 11/02/16 07:00 Intake Total 5330 ml Output Total 5035 ml Balance 295 ml Constitutional Vital Signs Date Time Temp Pulse Resp B/P Pulse Ox O2 Delivery O2 Flow Rate FiO2 11/02/16 10:00 103 11/02/16 08:00 98.0 60 10 132/81 98 11/02/16 08:00 60 11/02/16 07:00 Room Air 11/02/16 06:37 19 11/02/16 06:00 74 11/02/16 04:43 16 11/02/16 04:00 98.9 65 24 131/87 99 11/02/16 04:00 77 11/02/16 00:00 99.2 104 20 125/64 96 11/02/16 00:00 77 11/01/16 22:25 16 11/01/16 22:00 89 11/01/16 21:25 98 Nasal Cannula 1.00 11/01/16 20:19 16 11/01/16 20:00 65 11/01/16 20:00 98.7 96 24 137/92 98 11/01/16 19:00 Room Air 11/01/16 18:40 74 14 138/75 100 Nasal Cannula 2 11/01/16 18:30 72 14 148/75 98 Nasal Cannula 4 11/01/16 18:15 69 14 145/78 97 Nasal Cannula 4 11/01/16 18:00 74 14 141/70 97 Nasal Cannula 4 11/01/16 17:37 97.5 74 14 140/87 97 Nasal Cannula 4 11/01/16 12:00 97.8 61 12 129/82 98 11/01/16 12:00 65 11/02/16 07:00 Intake Total 5330 ml Output Total 5035 ml Balance 295 ml (Maria E Wallace) Review of Systems/Exam Exam Mr. Sanchez is alert, awake and oriented to time, place and person. Speech is fluent. Wound is clean with dressing in place. PAM drain with minimal drainage Cranial nerve examination: pupils to be equal, round and reactive to light. Extra-ocular movements are intact. Facial motor and sensory function are normal and symmetrical. . Neck immobilized by [place] j collar Muscle strength 3/5 proximal upper extremity, 4/5 distal UE and b/l LE Bilateral plantars flexors (Maria E Wallace) Medications Current Medications Current Medications Medications (Trade) Dose Ordered Sig/Mariela Route PRN Reason Start Time Stop Time Status Last Admin Dose Admin Ondansetron HCl (Zofran Inj) 4 mg Q6H PRN IV NAUSEA OR VOMITING 10/31/16 19:15 11/01/16 20:14 Miscellaneous Information 1 [id number] XX 10/31/16 19:15 Chlorhexidine Gluconate (Chlorhexidine 2% Cloth) 3 pack Taper DAILY@04 TOP 11/01/16 04:00 10/28/17 03:59 11/02/16 04:00 Chlorhexidine Gluconate (Chlorhexidine 2% Cloth) 3 pack UNSCH PRN TOP HYGIENIC CARE 10/31/16 19:15 Magnesium Hydroxide (Milk Of Magnesia Liq) 30 ml Q12H PRN PO MILD - MODERATE CONSTIPATION 10/31/16 19:15 Sennosides (Senokot) 17.2 mg Q12H PRN PO MODERATE - SEVERE CONSTIPATION 10/31/16 19:15 Bisacodyl (Dulcolax Supp) 10 mg DAILY PRN RECTAL SEVERE CONSITIPATION 10/31/16 19:15 Lactulose 30 ml 30 ml DAILY PRN PO SEVERE CONSITIPATION 10/31/16 19:15 Levetriacetam 100 ml @ 400 mls/hr Q12HR IV 11/01/16 21:00 11/02/16 07:26 Potassium Chloride/Sodium Chloride (NS + KCl 20 Meq Inj) 1,000 ml @ 100 mls/hr Q10H IV 11/01/16 17:11 11/02/16 02:35 IV Flush (NS Flush) 2 ml UNSCH PRN IVF FLUSH AFTER USING IV ACCESS 11/01/16 17:15 IV Flush 2 ml 2 ml BID IVF 11/01/16 21:00 11/02/16 07:26 Cefazolin Sodium/ Dextrose (Ancef 2 Gm Premix) 50 ml @ 100 mls/hr Q8H IV 11/01/16 23:00 11/02/16 15:29 11/02/16 06:07 Docusate Sodium (Colace) 100 mg BID PO 11/01/16 21:00 11/02/16 07:27 Pantoprazole Sodium (Protonix) 40 mg DAILY PO 11/02/16 09:00 11/02/16 07:27 Acetaminophen/ Hydrocodone Bitart ([place] 10-325 Mg) 1 tab Q4H PRN PO PAIN SCALE 1 TO 5 11/01/16 17:15 11/02/16 04:12 Acetaminophen/ Hydrocodone Bitart ([place] 10-325 Mg) 2 tab Q4H PRN PO PAIN SCALE 6 TO 10 11/01/16 17:15 11/02/16 10:11 Acetaminophen (Tylenol) 650 mg Q4H PRN PO TEMPERATURE > 101.5 F 11/01/16 17:15 Miscellaneous Information ALL NURSING DEPARTME... UNSCH PRN .XX SEE LABEL COMMENTS 11/01/16 18:15 11/02/16 18:14 Hydromorphone HCl (Dilaudid Pf Inj) 1 mg Q2H PRN IV FOR PAIN 11/01/16 23:45 11/02/16 08:10 (Mari aE Wallace) Medical Decision Making MDM Remarks 46 y/o male s/p C4-5, C5-6 ACDF for large disc extrusions with cord compression and myelopathy, POD 1 (Maria E Wallace) Plan Plan Remarks dc PAM drain, maintain cervical collar for 3 weeks, f/u xrays c spine in 3 weeks activity restrictions PT, OT, rehab clear to dc from NRS standpoint (Maria E Wallace) Attending Statement The exam, history, and the medical decision-making described in the above note were completed with the assistance of the mid-level provider. I reviewed and agree with the findings presented. I attest that I had a [id number] encounter with the patient on the same day, and personally performed and documented my assessment and findings in the medical record. (Christian Dior MD) Maria E Wallace Nov 02, 2016 10:52 Christian Dior MD Nov 06, 2016 20:11
--- NOTE | 2016-11-02 14:05 | HHI.CCPN ---
Subjective 24 Hour Review/Hospital Course 11/01s/p Fall with SCI C4-6 level with weakness UE b/l s/p spinal decompression today resting comfortably no complains 11/02 pod #1 spinal decompression doing well pain well controlled stable from general trauma standpoint Objective Vital Signs Date Time Temp Pulse Resp B/P Pulse Ox O2 Delivery O2 Flow Rate FiO2 11/02/16 12:00 80 11/02/16 12:00 98.6 17 146/88 100 11/02/16 08:34 Nasal Cannula 1.00 Intake and Output 11/01/16 11/01/16 11/02/16 08:00 16:00 00:00 Intake Total 839 ml 900 ml 2940 ml Output Total 600 ml 800 ml 2215 ml Balance 239 ml 100 ml 725 ml Result Diagram: 11/02/16 0404 11/02/16 0404 Exam MATERIAL ASSEMBLER 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
[2016-11-02] MEDS: ENOXAPARIN SODIUM 30 MG/0.3 ML SYRINGE SQ SCH (14:39)
[2016-11-03] VITALS (15 sets, daily range): BP systolic 129–164; BP diastolic 83–97; PULSE 56–98; RESP 13–18; TEMP 98.1–98.9; O2SAT 94–100
[2016-11-03] MEDS: HYDROmorphone HCL PF 1 MG/ML VIAL IV PRN ×9 (00:10→20:31)
[2016-11-03] MEDS: ENOXAPARIN SODIUM 30 MG/0.3 ML SYRINGE SQ SCH ×2 (03:13→13:14)
[2016-11-03] MEDS: CHLORHEXIDINE GLUCONATE 2 % 1 PACK (2 CLOTHS) TOP SCH (04:00)
[2016-11-03 05:24] LABS: HEMATOCRIT 37.9 % (39.0-51.0); MEAN CELL VOLUME 82.7 FL (80.0-100.0); MEAN CORPUSCULAR HEMOGLOBIN 26.8 PG (27.0-34.0); MEAN CORPUSCULAR HGB CONC 32.4 % (32.0-36.0); PLATELET COUNT 306 TH/MM3 (150-450); RED BLOOD COUNT 4.59 MIL/MM3 (4.50-5.90); RED CELL DISTRIBUTION WIDTH 18.5 % (11.6-17.2); REVIEW FLAG FINAL
[2016-11-03 05:56] LABS: BICARBONATE 31.1 MEQ/L (21.0-32.0); MAGNESIUM 2.1 MG/DL (1.5-2.5)
[2016-11-03] MEDS: NS + KCL 20 MEQ INJ 1,000 ML IV SCH ×2 (07:31→17:34)
[2016-11-03] MEDS: PANTOPRAZOLE SOD 40 MG DELAYED RELEASE TAB PO SCH (08:20)
[2016-11-03] MEDS: DOCUSATE SODIUM 100 MG CAP PO SCH ×2 (08:21→20:31)
[2016-11-03] MEDS: levETIRAcetam 1000 MG INJ 100 ML IV SCH ×2 (08:23→20:31)
[2016-11-03] MEDS: SODIUM CHLORIDE 0.9% FLUSH 5 ML FLUSH IVF SCH ×2 (08:24→20:32)
--- NOTE | 2016-11-03 14:23 | HHI.CCPN ---
Subjective Brief History [place]: This is a 46-year-old male who is in group home. He was noted to have a seizure and fell off the top bunk bed (approx 6 ft). Then, as he was post ictal, he stumbled and fell off of a balcony of approximately 12 feet. INJURIES: Spinal cord injury Spinal stenosis. C4-5, C5-6 DISK herniation causing significant spinal stenosis. w/ minimal increased signal in the RIGHT lateral half of the cord. 24 Hour Review/Hospital Course 11/01s/p Fall with SCI C4-6 level with weakness UE b/l s/p spinal decompression today resting comfortably no complains 11/02 pod #1 spinal decompression doing well pain well controlled stable from general trauma standpoint 11/03/2016 PTD: 3 Patient awake and sitting up in bed. No distress noted. Guards at bedside. Patient has slight numbness in bilateral hands. Weak bilateral hand graphic design teacher. ( Isadora Haley) Objective Vital Signs Date Time Temp Pulse Resp B/P Pulse Ox O2 Delivery O2 Flow Rate FiO2 11/03/16 13:45 16 11/03/16 12:00 98.6 80 153/88 99 11/03/16 08:48 Nasal Cannula 4.00 Intake and Output 11/02/16 11/02/16 11/03/16 08:00 16:00 00:00 Intake Total 1490 ml 880 ml 1151 ml Output Total 2020 ml 2500 ml 700 ml Balance -530 ml -1620 ml 451 ml (Isadora Haley) Result Diagram: 11/03/16 0432 11/03/16 0432 Imaging Last Impressions Cervical Spine X-Ray 11/01/16 0000 Signed Impressions: Service Date/Time: Tuesday, November 01, 2016 14:59 - CONCLUSION: Limited images as detailed above. Jeremie Clay Jr., MD Cervical Spine MRI 10/31/16 1857 Signed Impressions: Service Date/Time: Monday, October 31, 2016 19:29 - CONCLUSION: Large disc herniation causing significant spinal stenosis and minimal increased signal in the right lateral half of the cord. Luis rOo MD FACR Thoracic Spine CT 10/31/16 1835 Signed Impressions: Service Date/Time: Monday, October 31, 2016 18:39 - CONCLUSION: Minimal Schmorl' s type endplate depression at T6, negative for acute traumatic injury. Luis Oro MD FACR Lumbar Spine CT 10/31/161834 Signed Impressions: Service Date/Time: Monday, October 31, 2016 18:39 - CONCLUSION: Degenerative changes, negative for acute traumatic injury. Luis Oro MD FACR Head CT 10/31/161834 Signed Impressions: Service Date/Time: Monday, October 31, 2016 18:39 - CONCLUSION: Negative for acute traumatic injury. Luis Oro MD FACR Chest X-Ray 10/31/161834 Signed Impressions: Service Date/Time: Monday, October 31, 2016 18:22 - CONCLUSION: Artifact from backboard otherwise negative for pneumothorax. MD AMINATA ReddyR Chest CT 10/31/161834 Signed Impressions: Service Date/Time: Monday, October 31, 2016 18:48 - CONCLUSION: Emphysematous changes otherwise negative.. Luis Oro MD FACR Cervical Spine CT 10/31/161834 Signed Impressions: Service Date/Time: Monday, October 31, 2016 18:43 - CONCLUSION: There are spinal stenosis at C4-C5 and moderate to severe spinal stenosis at C5-C6. MRI is pending. Luis Oro MD FACR Abdomen/Pelvis CT 10/31/161834 Signed Impressions: Service Date/Time: Monday, October 31, 2016 18:48 - CONCLUSION: Negative for acute traumatic injury. Luis Oro MD FACR Pelvis X-Ray 10/31/16 0000 Signed Impressions: Service Date/Time: Monday, October 31, 2016 18:22 - CONCLUSION: Artifact from backboard otherwise negative for fracture.. Luis Oro MD FACR Objective Remarks GENERAL: This is a 46-year-old male sitting up in bed. No distress noted. SKIN: Warm and dry. HEAD: Atraumatic. Normocephalic. EYES: PERRLA ENT: No nasal bleeding or discharge. Mucous membranes pink and moist. NECK: Trachea midline. No JVD. CARDIOVASCULAR: Regular rate and rhythm. RESPIRATORY: No accessory muscle use. Lungs are clear to auscultation. Breath sounds equal bilaterally. No distress or dyspnea. GASTROINTESTINAL: BS + x 4 quads. Abdomen soft, non-tender, nondistended. MUSCULOSKELETAL: Extremities without cyanosis, or edema. Bilateral hand graphic design teacher are weak. + peripheral pulses x 4 extremities. Warm with good capillary refill and sensation. MAEW. NEUROLOGICAL: Awake and alert. Normal speech and pattern. (Isadora Haley HAND SPRAYER) Urinary Catheter Assessment Urinary Catheter: No (Isadora Haley HAND SPRAYER) Vascular Central Line Catheter Vascular Central Line Catheter: No (BriannaDarellIsadora Huber HAND SPRAYER) Assessment and Plan Assessment: (1) Seizure ICD Code: R56.9 Status: Acute (2) Status post cervical arthrodesis ICD Code: Z98.1 Status: Acute Plan [place]: This is a 46-year-old male who is in group home. He was noted to have a seizure and fell off the top bunk bed (approx 6 ft). Then, as he was post ictal, he stumbled and fell off of a balcony of approximately 12 feet. INJURIES: Spinal cord injury Spinal stenosis. C4-5, C5-6 DISK herniation causing significant spinal stenosis. w/ minimal increased signal in the RIGHT lateral half of the cord. Procedures: 11/01: C4-5, C5-6 anterior fusion Consults: [facility]. Neurosurgery. Neurology. Diet: Regular diet. Tolerating po diet. Encourage good po intake with each meal. Pulmonary: Encourage good pulmonary toileting. IS at bedside and pt encouraged to use. Rationale for use explained to patient, and verbalized understanding. PAIN Management: [place] 10-20 mg. Dilaudid 0.5-1 mg q 4h. Activity: OK for out OOB per NS. PT and OT ordered. ([place] J collar) GI prophylaxis: Not indicated at this time. Bowel regimen: Colace and MOM. Senna. Bisacodyl. LBM: 0 DVT prophylaxis: Mechanical VTE with SCDs. Chemical management with Lovenox 30 BID SQ. DC Planning: Case management consulted for assistance with final discharge disposition. Patient will be discharged back to group home once medically cleared and stable. Emotional support provided to patient and family at bedside and plan of care discussed. Discussed with RN at bedside. Patient is hemodynamically stable and being managed on the med/surg floor. Spinal cord injury Spinal stenosis. C4-5, C5-6 DISK herniation causing significant spinal stenosis. w/ minimal increased signal in the RIGHT lateral half of the cord. Seizures Neurosurgery consulted and assisting with management and care Neurology consulted and assisting with management and care 11/01: C4-5, C5-6 anterior fusion Serial neuro checks Seizure precautions IV Keppra PT and OT ordered Encourage out of bed Pain management Neurosurgery has cleared the patient for discharge. (Isadora Haley) Remarks Patient seen and examined with CLIENT HR MANAGER-agree with assessment and plan overall stable transferred to floor yesterday continues to have b/l UE weakness PT/OT (Kimberley Sibley MD) Isadora Haley Nov 03, 2016 14:23 Kimberley Sibley MD Nov 03, 2016 14:54
[2016-11-03] MEDS: ACETAMINOPHEN/HYDROcodone 325 MG/10 MG TAB PO PRN (22:45)
[2016-11-04] VITALS (7 sets, daily range): BP systolic 110–136; BP diastolic 83–91; PULSE 78–106; RESP 16–17; TEMP 96.7–97.9; O2SAT 96–98
[2016-11-04] MEDS: ACETAMINOPHEN/HYDROcodone 325 MG/10 MG TAB PO PRN ×5 (02:33→21:34)
[2016-11-04] MEDS: ENOXAPARIN SODIUM 30 MG/0.3 ML SYRINGE SQ SCH ×2 (02:34→14:05)
[2016-11-04] MEDS ORDERED: SENN8.6T15 PO (08:08)
[2016-11-04] MEDS ORDERED: ACET1TAB86 PO (08:08)
[2016-11-04] MEDS ORDERED: MAGN400S PO (08:08)
[2016-11-04] MEDS ORDERED: DOCU1CAP39 PO (08:08)
[2016-11-04] MEDS ORDERED: LEVE500 PO (08:10)
[2016-11-04] MEDS: levETIRAcetam 1000 MG INJ 100 ML IV SCH ×2 (08:24→21:33)
[2016-11-04] MEDS: DOCUSATE SODIUM 100 MG CAP PO SCH ×2 (08:25→21:34)
[2016-11-04] MEDS: PANTOPRAZOLE SOD 40 MG DELAYED RELEASE TAB PO SCH (08:25)
[2016-11-04] MEDS: SODIUM CHLORIDE 0.9% FLUSH 5 ML FLUSH IVF SCH ×2 (09:00→21:00)
[2016-11-04] MEDS: HYDROmorphone HCL PF 1 MG/ML VIAL IV PRN ×2 (09:16→14:05)
[2016-11-04] MEDS: LACTULOSE SYRUP 20 GM/30 ML CUP PO SCH (13:45)
--- NOTE | 2016-11-04 13:50 | HHI.PR ---
Subjective Subjective Notes PTD: 3 Patient sitting up in bed. Guard at bedside. Patient complains of shooting pain down his back. Patient states he can't walk. Objective Vitals/I&O Vital Signs Date Time Temp Pulse Resp B/P Pulse Ox O2 Delivery O2 Flow Rate FiO2 11/04/16 08:01 96 21 11/04/16 07:17 96.7 106 17 126/87 11/03/16 20:37 Nasal Cannula 4.00 Labs Laboratory Tests Test 10/31/16 10/31/16 11/02/16 11/03/16 18:31 20:23 04:04 04:32 Bedside Hemoglobin 14.3 G/DL Bedside Hematocrit 42.0 % Prothrombin Time 10.9 SEC Prothromb Time International 1.0 RATIO Ratio Activated Partial 22.8 SEC Thromboplast Time Bedside Sodium 139 MMOL/L Bedside Potassium 4.3 MMOL/L Bedside Chloride 99 MMOL/L Bedside Blood Urea Nitrogen 12 MG/DL Bedside Creatinine 0.9 MG/DL Bedside Glucose 173 MG/DL Blood Type A POSITIVE Antibody Screen NEGATIVE Nasal Screen MRSA (PCR) MRSA NOT DETECTED Neutrophils (%) (Auto) 88.7 % Lymphocytes (%) (Auto) 8.1 % Monocytes (%) (Auto) 3.0 % Eosinophils (%) (Auto) 0.1 % Basophils (%) (Auto) 0.1 % Neutrophils # (Auto) 10.6 TH/MM3 Lymphocytes # (Auto) 1.0 TH/MM3 Monocytes # (Auto) 0.4 TH/MM3 Eosinophils # (Auto) 0.0 TH/MM3 Basophils # (Auto) 0.0 TH/MM3 CBC Comment DIFF FINAL Differential Comment Total Bilirubin 0.2 MG/DL Aspartate Amino Transf 20 U/L (AST/SGOT) Alanine Aminotransferase 34 U/L (ALT/SGPT) Alkaline Phosphatase 122 U/L Total Protein 7.3 GM/DL Albumin 2.9 GM/DL White Blood Count 11.0 TH/MM3 Red Blood Count 4.59 MIL/MM3 Hemoglobin 12.3 GM/DL Hematocrit 37.9 % Mean Corpuscular Volume 82.7 FL Mean Corpuscular Hemoglobin 26.8 PG Mean Corpuscular Hemoglobin 32.4 % Concent Red Cell Distribution Width 18.5 % Platelet Count 306 TH/MM3 Mean Platelet Volume 8.2 FL Sodium Level 141 MEQ/L Potassium Level 4.0 MEQ/L Chloride Level 105 MEQ/L Carbon Dioxide Level 31.1 MEQ/L Anion Gap 5 MEQ/L Blood Urea Nitrogen 7 MG/DL Creatinine 0.70 MG/DL Estimat Glomerular Filtration 120 ML/MIN Rate Random Glucose 64 MG/DL Calcium Level 8.6 MG/DL Magnesium Level 2.1 MG/DL Radiology Last Impressions Cervical Spine X-Ray 11/01/16 0000 Signed Impressions: Service Date/Time: Tuesday, November 01, 2016 14:59 - CONCLUSION: Limited images as detailed above. Jeremie Clay Jr., MD Cervical Spine MRI 10/31/161856 Signed Impressions: Service Date/Time: Monday, October 31, 2016 19:29 - CONCLUSION: Large disc herniation causing significant spinal stenosis and minimal increased signal in the right lateral half of the cord. Luis Oro MD FACR Thoracic Spine CT 10/31/161834 Signed Impressions: Service Date/Time: Monday, October 31, 2016 18:39 - CONCLUSION: Minimal Schmorl' s type endplate depression at T6, negative for acute traumatic injury. Luis Oro MD FACR Lumbar Spine CT 10/31/161834 Signed Impressions: Service Date/Time: Monday, October 31, 2016 18:39 - CONCLUSION: Degenerative changes, negative for acute traumatic injury. Luis Oro MD FACR Head CT 10/31/161834 Signed Impressions: Service Date/Time: Monday, October 31, 2016 18:39 - CONCLUSION: Negative for acute traumatic injury. Luis Oro MD FACR Chest X-Ray 10/31/161834 Signed Impressions: Service Date/Time: Monday, October 31, 2016 18:22 - CONCLUSION: Artifact from backboard otherwise negative for pneumothorax. Luis Oro MD FACR Chest CT 10/31/161834 Signed Impressions: Service Date/Time: Monday, October 31, 2016 18:48 - CONCLUSION: Emphysematous changes otherwise negative.. Luis Oro MD FACR Cervical Spine CT 10/31/161834 Signed Impressions: Service Date/Time: Monday, October 31, 2016 18:43 - CONCLUSION: There are spinal stenosis at C4-C5 and moderate to severe spinal stenosis at C5-C6. MRI is pending. Luis Oro MD FACR Abdomen/Pelvis CT 10/31/165 Signed Impressions: Service Date/Time: Monday, October 31, 2016 18:48 - CONCLUSION: Negative for acute traumatic injury. Luis Oro MD FACR Pelvis X-Ray 10/31/16 0000 Signed Impressions: Service Date/Time: Monday, October 31, 2016 18:22 - CONCLUSION: Artifact from backboard otherwise negative for fracture.. Luis Oro MD FACR Narrative Exam GENERAL: This is a 46-year-old male sitting up in bed. No distress noted. SKIN: Warm and dry. HEAD: Atraumatic. Normocephalic. EYES: PERRLA ENT: No nasal bleeding or discharge. Mucous membranes pink and moist. NECK: [place] J collar in place. Trachea midline. No JVD. CARDIOVASCULAR: Regular rate and rhythm. RESPIRATORY: No accessory muscle use. Lungs are clear to auscultation. Breath sounds equal bilaterally. No distress or dyspnea. GASTROINTESTINAL: BS + x 4 quads. Abdomen soft, non-tender, nondistended. MUSCULOSKELETAL: Extremities without cyanosis, or edema. Bilateral hand marine safety officer are weak. Bilateral foot pushes weak. + peripheral pulses x 4 extremities. Warm with good capillary refill and sensation. MAEW. NEUROLOGICAL: Awake and alert. Normal speech and pattern A/P Problem List: (1) Seizure (2) Status post cervical arthrodesis Assessment and Plan [place]: This is a 46-year-old male who is in longterm. He was noted to have a seizure and fell off the top bunk bed (approx 6 ft). Then, as he was post ictal, he stumbled and fell off of a balcony of approximately 12 feet. INJURIES: Spinal cord injury Spinal stenosis. C4-5, C5-6 DISK herniation causing significant spinal stenosis. w/ minimal increased signal in the RIGHT lateral half of the cord. Procedures: 11/01: C4-5, C5-6 anterior fusion Consults: [facility]. Neurosurgery. Neurology. Diet: Regular diet. Tolerating po diet. Encourage good po intake with each meal. Pulmonary: Encourage good pulmonary toileting. IS at bedside and pt encouraged to use. Rationale for use explained to patient, and verbalized understanding. PAIN Management: [place] 10-20 mg. added Neurontin 300 mg TID. Dilaudid 0.5-1 mg q 4h. Activity: OK for out OOB per NS. PT and OT ordered and intensified to 7 days a week. ([place] J collar) GI prophylaxis: Protonix by mouth. Bowel regimen: Colace and MOM. Added lactulose daily. Senna. Bisacodyl. LBM : 0 DVT prophylaxis: Mechanical VTE with SCDs. Chemical management with Lovenox 30 BID SQ. DC Planning: Case management consulted for assistance with final discharge disposition. Patient will be discharged back to longterm once medically cleared and stable. Emotional support provided to patient and family at bedside and plan of care discussed. Discussed with RN at bedside. Patient is hemodynamically stable and being managed on the med/surg floor. Spinal cord injury Spinal stenosis. C4-5, C5-6 DISK herniation causing significant spinal stenosis. w/ minimal increased signal in the RIGHT lateral half of the cord. Seizures Neurosurgery consulted and assisting with management and care Neurology consulted and assisting with management and care 11/01: C4-5, C5-6 anterior fusion Serial neuro checks Seizure precautions IV Keppra PT and OT ordered and intensified to 7 days a week to promote progress. Encourage out of bed Pain management Neurosurgery has cleared the patient for discharge, however patient is having difficulty with ambulation. Isadora Haley Nov 04, 2016 13:50
[2016-11-04] MEDS: GABAPENTIN 300 MG CAP PO SCH (18:00)
[2016-11-05] VITALS: BP 141/98; PULSE 85; RESP 16; TEMP 97.7; O2SAT 96
[2016-11-05] MEDS: ENOXAPARIN SODIUM 30 MG/0.3 ML SYRINGE SQ SCH ×2 (02:45→13:50)
[2016-11-05] MEDS: ACETAMINOPHEN/HYDROcodone 325 MG/10 MG TAB PO PRN ×5 (02:45→22:45)
[2016-11-05 08:00] VITALS: BP 134/93; PULSE 79; RESP 17; TEMP 95.5; O2SAT 98
[2016-11-05] MEDS: GABAPENTIN 300 MG CAP PO SCH ×3 (08:26→17:09)
[2016-11-05] MEDS: PANTOPRAZOLE SOD 40 MG DELAYED RELEASE TAB PO SCH (08:27)
[2016-11-05] MEDS: levETIRAcetam 1000 MG INJ 100 ML IV SCH ×2 (08:28→19:49)
[2016-11-05] MEDS: DOCUSATE SODIUM 100 MG CAP PO SCH ×2 (08:28→19:55)
[2016-11-05] MEDS: SODIUM CHLORIDE 0.9% FLUSH 5 ML FLUSH IVF SCH ×2 (08:28→19:55)
[2016-11-05] MEDS: LACTULOSE SYRUP 20 GM/30 ML CUP PO SCH (08:29)
[2016-11-05] MEDS: HYDROmorphone HCL PF 1 MG/ML VIAL IV PRN ×2 (10:28→19:49)
[2016-11-05 12:00] VITALS: BP 147/86; PULSE 72; RESP 18; TEMP 96.9; O2SAT 97
--- NOTE | 2016-11-05 13:04 | HHI.PR ---
Subjective Subjective Notes PTD: 4 Patient lying in bed. Guard at bedside. Patient states, "I'm concerned a lot about my legs. I'm trying to turn my leg, and it's not doing anything." Patient states that his pain meds are not working. * Bedside RN states that she has seen the patient use his hands to eat, and push himself up in bed. Guard has seen the patient move his legs Objective Vitals/I&O Vital Signs Date Time Temp Pulse Resp B/P Pulse Ox O2 Delivery O2 Flow Rate FiO2 11/05/16 08:25 Room Air 11/05/16 08:00 95.5 79 17 134/93 98 11/04/16 08:01 21 11/03/16 20:37 4.00 Labs Laboratory Tests Test 11/02/16 11/03/16 04:04 04:32 Neutrophils (%) (Auto) 88.7 % Lymphocytes (%) (Auto) 8.1 % Monocytes (%) (Auto) 3.0 % Eosinophils (%) (Auto) 0.1 % Basophils (%) (Auto) 0.1 % Neutrophils # (Auto) 10.6 TH/MM3 Lymphocytes # (Auto) 1.0 TH/MM3 Monocytes # (Auto) 0.4 TH/MM3 Eosinophils # (Auto) 0.0 TH/MM3 Basophils # (Auto) 0.0 TH/MM3 CBC Comment DIFF FINAL Differential Comment Total Bilirubin 0.2 MG/DL Aspartate Amino Transf 20 U/L (AST/SGOT) Alanine Aminotransferase 34 U/L (ALT/SGPT) Alkaline Phosphatase 122 U/L Total Protein 7.3 GM/DL Albumin 2.9 GM/DL White Blood Count 11.0 TH/MM3 Red Blood Count 4.59 MIL/MM3 Hemoglobin 12.3 GM/DL Hematocrit 37.9 % Mean Corpuscular Volume 82.7 FL Mean Corpuscular Hemoglobin 26.8 PG Mean Corpuscular Hemoglobin 32.4 % Concent Red Cell Distribution Width 18.5 % Platelet Count 306 TH/MM3 Mean Platelet Volume 8.2 FL Sodium Level 141 MEQ/L Potassium Level 4.0 MEQ/L Chloride Level 105 MEQ/L Carbon Dioxide Level 31.1 MEQ/L Anion Gap 5 MEQ/L Blood Urea Nitrogen 7 MG/DL Creatinine 0.70 MG/DL Estimat Glomerular Filtration 120 ML/MIN Rate Random Glucose 64 MG/DL Calcium Level 8.6 MG/DL Magnesium Level 2.1 MG/DL Radiology Last Impressions Cervical Spine X-Ray 11/01/16 0000 Signed Impressions: Service Date/Time: Tuesday, November 01, 2016 14:59 - CONCLUSION: Limited images as detailed above. Jeremie Clay Jr., MD Cervical Spine MRI 10/31/161856 Signed Impressions: Service Date/Time: Monday, October 31, 2016 19:29 - CONCLUSION: Large disc herniation causing significant spinal stenosis and minimal increased signal in the right lateral half of the cord. MD AMINATA ReddyR Thoracic Spine CT 10/31/161834 Signed Impressions: Service Date/Time: Monday, October 31, 2016 18:39 - CONCLUSION: Minimal Schmorl' s type endplate depression at T6, negative for acute traumatic injury. MD AMINATA ReddyR Lumbar Spine CT 10/31/161834 Signed Impressions: Service Date/Time: Monday, October 31, 2016 18:39 - CONCLUSION: Degenerative changes, negative for acute traumatic injury. Luis Oro MD FACR Head CT 10/31/161834 Signed Impressions: Service Date/Time: Monday, October 31, 2016 18:39 - CONCLUSION: Negative for acute traumatic injury. Luis Oro MD FACR Chest X-Ray 10/31/161834 Signed Impressions: Service Date/Time: Monday, October 31, 2016 18:22 - CONCLUSION: Artifact from backboard otherwise negative for pneumothorax. MD AMINATA ReddyR Chest CT 10/31/161834 Signed Impressions: Service Date/Time: Monday, October 31, 2016 18:48 - CONCLUSION: Emphysematous changes otherwise negative.. Luis Oro MD FACFrancine Cervical Spine CT 10/31/161834 Signed Impressions: Service Date/Time: Monday, October 31, 2016 18:43 - CONCLUSION: There are spinal stenosis at C4-C5 and moderate to severe spinal stenosis at C5-C6. MRI is pending. MD PRIMO Reddy Abdomen/Pelvis CT 10/31/161834 Signed Impressions: Service Date/Time: Monday, October 31, 2016 18:48 - CONCLUSION: Negative for acute traumatic injury. Luis Oro MD FACFrancine Pelvis X-Ray 10/31/16 0000 Signed Impressions: Service Date/Time: Monday, October 31, 2016 18:22 - CONCLUSION: Artifact from backboard otherwise negative for fracture.. Luis Oro MD FACR Narrative Exam GENERAL: This is a 46-year-old male sitting up in bed. No distress noted. SKIN: Warm and dry. HEAD: Atraumatic. Normocephalic. EYES: PERRLA ENT: No nasal bleeding or discharge. Mucous membranes pink and moist. NECK: [place] J collar in place. Trachea midline. No JVD. CARDIOVASCULAR: Regular rate and rhythm. RESPIRATORY: No accessory muscle use. Lungs are clear to auscultation. Breath sounds equal bilaterally. No distress or dyspnea. GASTROINTESTINAL: BS + x 4 quads. Abdomen soft, non-tender, nondistended. MUSCULOSKELETAL: Extremities without cyanosis, or edema. Bilateral hand base ply hand are weak. Patient does not move feet upon command today. + peripheral pulses x 4 extremities. Warm with good capillary refill and sensation. Moves only upper extremities weakly. NEUROLOGICAL: Awake and alert. Normal speech and pattern A/P Problem List: (1) Seizure (2) Status post cervical arthrodesis Assessment and Plan [place]: This is a 46-year-old male who is in nursing home. He was noted to have a seizure and fell off the top bunk bed (approx 6 ft). Then, as he was post ictal, he stumbled and fell off of a balcony of approximately 12 feet. INJURIES: Spinal cord injury Spinal stenosis. C4-5, C5-6 DISK herniation causing significant spinal stenosis. w/ minimal increased signal in the RIGHT lateral half of the cord. Procedures: 11/01: C4-5, C5-6 anterior fusion Consults: [facility]. Neurosurgery. Neurology. Diet: Regular diet. Tolerating po diet. Encourage good po intake with each meal. Pulmonary: Encourage good pulmonary toileting. IS at bedside and pt encouraged to use. Rationale for use explained to patient, and verbalized understanding. PAIN Management: [place] 10-20 mg. Neurontin 300 mg TID. Dilaudid 0.5-1 mg q 4h. Activity: OK for out OOB per NS. PT and OT ordered and intensified to 7 days a week. ([place] J collar) GI prophylaxis: Protonix po. Bowel regimen: Colace and MOM. Lactulose daily. Senna. Bisacodyl. LBM: 0 DVT prophylaxis: Mechanical VTE with SCDs. Chemical management with Lovenox 30 BID SQ. DC Planning: Case management consulted for assistance with final discharge disposition. Patient will be discharged back to nursing home once medically cleared and stable. Emotional support provided to patient and family at bedside and plan of care discussed. Discussed with RN at bedside. Patient is hemodynamically stable and being managed on the med/surg floor. Spinal cord injury Spinal stenosis. C4-5, C5-6 DISK herniation causing significant spinal stenosis. w/ minimal increased signal in the RIGHT lateral half of the cord. Seizures Neurosurgery consulted and assisting with management and care Neurology consulted and assisting with management and care 11/01: C4-5, C5-6 anterior fusion Serial neuro checks Seizure precautions IV Keppra PT and OT ordered and intensified to 7 days a week to promote progress. Encourage out of bed Pain management Neurosurgery has cleared the patient for discharge, however patient is having difficulty with ambulation. Spoke with DEVIN Carlson who is covering for Dr. Dior this weekend. He agrees to reevaluate the patient. Isadora Haley Nov 05, 2016 13:04
--- NOTE | 2016-11-05 13:56 | HHI.NSPN ---
History Chief Complaint: Numbness and weakness in extremities. Interval History Mr. Sanchez s/p C4-5, C5-6 anterior cervical discectomy, interbody arthodhesis using PEEK cage filled with autologous bone graft, Simplicity plate and screws for cord compression with myelopathy. POD 1, neuro stable, persistent extremity weakness and paresthesias. no new neuro complaints. POD 2, Pt awake. Complains of weakness in UEs and paresthesias involving the hands and UEs all over in no particular distribution. He denies any chest numbness or abdomen numbness. He complains of numbness in his LEs all over. He also complains of weakness in LEs. Guard states he has seen him move his legs but RN states he hasn't seen him move his legs when she is in there and he wont to command for me. He takes his cervical collar off to eat. Review of Systems General: Negative for: fever, chills, insomnia Respiratory: Negative for: shortness of breath, cough, sputum Cardiovascular: Negative for: chest pain Gastrointestinal: Negative for: nausea, vomitting, diarrhea, constipation Exam Results Vital Signs Date Time Temp Pulse Resp B/P Pulse Ox O2 Delivery O2 Flow Rate FiO2 11/05/16 08:25 Room Air 11/05/16 08:00 95.5 79 17 134/93 98 11/04/16 08:01 21 11/03/16 20:37 4.00 Intake and Output 11/04/16 11/04/16 11/05/16 08:00 16:00 00:00 Intake Total 240 ml 720 ml 480 ml Output Total 700 ml 1250 ml 800 ml Balance -460 ml -530 ml -320 ml Physical Examination Resp: CTA bilaterally Heart: NSR no murmurs Abd: Soft positive bs Skin: No cyanosis or erythema Muscle: Pt moves UEs with 3+/5 strength. He states he cannot move his LEs voluntarily. Neuro: Pt feels pain in thighs bilaterally but complains of Numbness in LEs. He states he has more numbness distally than proximally. He denies any numbness in his chest or abdomen only in the extremities. Lab, Micro, Other Results Last Impressions Cervical Spine X-Ray 11/01/16 0000 Signed Impressions: Service Date/Time: Tuesday, November 01, 2016 14:59 - CONCLUSION: Limited images as detailed above. Jeremie Clay Jr., MD Cervical Spine MRI 10/31/161856 Signed Impressions: Service Date/Time: Monday, October 31, 2016 19:29 - CONCLUSION: Large disc herniation causing significant spinal stenosis and minimal increased signal in the right lateral half of the cord. MD PRIMO Reddy Thoracic Spine CT 10/31/161834 Signed Impressions: Service Date/Time: Monday, October 31, 2016 18:39 - CONCLUSION: Minimal Schmorl' s type endplate depression at T6, negative for acute traumatic injury. MD PRIMO Reddy Lumbar Spine CT 10/31/161834 Signed Impressions: Service Date/Time: Monday, October 31, 2016 18:39 - CONCLUSION: Degenerative changes, negative for acute traumatic injury. MD AMINATA ReddyR Head CT 10/31/161834 Signed Impressions: Service Date/Time: Monday, October 31, 2016 18:39 - CONCLUSION: Negative for acute traumatic injury. Luis Oro MD FACR Chest X-Ray 10/31/161834 Signed Impressions: Service Date/Time: Monday, October 31, 2016 18:22 - CONCLUSION: Artifact from backboard otherwise negative for pneumothorax. MD AMINATA ReddyR Chest CT 10/31/161834 Signed Impressions: Service Date/Time: Monday, October 31, 2016 18:48 - CONCLUSION: Emphysematous changes otherwise negative.. MD PRIMO Reddy Cervical Spine CT 10/31/161834 Signed Impressions: Service Date/Time: Monday, October 31, 2016 18:43 - CONCLUSION: There are spinal stenosis at C4-C5 and moderate to severe spinal stenosis at C5-C6. MRI is pending. MD PRIMO Reddy Abdomen/Pelvis CT 10/31/161834 Signed Impressions: Service Date/Time: Monday, October 31, 2016 18:48 - CONCLUSION: Negative for acute traumatic injury. MD PRIMO Reddy Pelvis X-Ray 10/31/16 0000 Signed Impressions: Service Date/Time: Monday, October 31, 2016 18:22 - CONCLUSION: Artifact from backboard otherwise negative for fracture.. Luis Oro MD FACR 11/04/16 11/04/16 11/05/16 15:00 23:00 07:00 Intake Total 720 ml 480 ml 480 ml Output Total 1250 ml 800 ml 700 ml Balance -530 ml -320 ml -220 ml Intake Oral 720 ml 480 ml 480 ml Output Urine Total 1250 ml 800 ml 700 ml # Voids 2 # Bowel Movements 0 0 0 Medical Decision Making Impression and Plan A: 46 y/o male s/p C4-5, C5-6 ACDF for large disc extrusions with cord compression and myelopathy, POD 1 Pt with weakness LEs states he cannot move x 1 day. He also has numbness in LEs. Plan Plan Plan Remarks Continue with cervical collar Continue to monitor Discuss with Aldo Carrion Nov 05, 2016 13:56
[2016-11-05 16:00] VITALS: BP 131/89; PULSE 100; RESP 18; TEMP 97.2; O2SAT 96
--- NOTE | 2016-11-05 18:20 | RADRPT ---
EXAM DATE/TIME: 11/05/2016 17:35 [facility] COMPARISON: MRI CERVICAL SPINE W/O CONTRAST, October 31, 2016, 19:29. INDICATIONS : Inability to ambulate. MEDICAL HISTORY : Hypertension. SURGICAL HISTORY : Fusion, cervical. ENCOUNTER: Initial ACUITY: 1 day PAIN SCORE: 4/10 LOCATION: Paraspinal TECHNIQUE: Multiplanar, multisequence MRI examination of the cervical spine was performed. FINDINGS: The cerebellar tonsils are normal in position. The spinal cord appears intact there Surgical scr ews traverse the bodies of C4, C5, and C6 with a plate placed anteriorly and evidence for anterior fu tiffany. There is slight prevertebral swelling from C2-C7 most likely postsurgical change maximum AP сергей meter of 1.8 cm. C2-C3: There is no evidence for any significant compromise to the thecal sac, or the exiting nerve roots. N o appreciable thecal sac stenosis is seen. The neural foramina and lateral recess appear patent bila terally. C3-C4: There is no evidence for any significant compromise to the thecal sac, or the exiting nerve roots. N o appreciable thecal sac stenosis is seen. The neural foramina and lateral recess appear patent bila terally. C4-C5: There is slight neural foramina compromise bilaterally due to hypertrophic changes with indentation o n the thecal sac without any significant thecal sac stenosis. Previously seen large disc herniation h as been resected surgically. C5-C6: Moderate overall thecal sac stenosis is seen due to hypertrophic changes. There is slight neural fora suki compromise bilaterally due to bulging disc and hypertrophic changes. C6-C7: There is slight neural foramina compromise bilaterally due to bulging disc and hypertrophic changes. Slight bulging disc and hypertrophic changes are seen with indentation on the thecal sac and no signi ficant compromise to the thecal sac. C7-T1: There is no evidence for any significant compromise to the thecal sac, or the exiting nerve roots. N o appreciable thecal sac stenosis is seen. The neural foramina and lateral recess appear patent bila terally. CONCLUSION: 1. Significant prevertebral swelling and edema mostly be postsurgical change. 2. Previously seen large disc herniation C4-C5 has been resected surgically with slight indentation o n the thecal sac without any significant stenosis. 3. Moderate thecal sac stenosis C5-6 with slight flattening of the spinal cord. 4. Slight neural foramina compromise bilaterally C4-C5, bilateral C6-C7. Cristal Whiting MD on November 05, 2016 at 18:12 Board Certified Radiologist. This report was verified electronically.
--- NOTE | 2016-11-05 18:33 | RADRPT ---
EXAM DATE/TIME: 11/05/2016 17:35 [facility] COMPARISON: No previous studies available for comparison. INDICATIONS : Inability to ambulate. MEDICAL HISTORY : Hypertension. SURGICAL HISTORY : Fusion, cervical. ENCOUNTER: Initial ACUITY: 1 day PAIN SCORE: 0/10 LOCATION: Paraspinal TECHNIQUE: Multiplanar multisequence MRI of the lumbar spine was performed without contrast. FINDINGS: The marrow signal appears intact. No significant compression deformities, spondylolisis, or spondylo lesthesis is seen. L1-L2: No appreciable compromise to the thecal sac, or the exiting nerve roots is seen. The neural foramina and lateral recesses are patent bilaterally. L2-L3: There is slight neural foramina compromise bilaterally due to bulging disc and hypertrophic changes. Moderate degenarative changes are seen within the disc space and facets. Slight bulging disc and hypertrophic changes are seen with indentation on the thecal sac and no significant compromise t o the thecal sac. L3-L4: There is slight neural foramina compromise bilaterally due to bulging disc and hypertrophic changes. Moderate degenarative changes are seen within the disc space and facets. Slight bulging disc and hypertrophic changes are seen with indentation on the thecal sac and no significant compromise t o the thecal sac. L4-L5: There is slight neural foramina compromise bilaterally due to bulging disc and hypertrophic changes. Moderate degenarative changes are seen within the disc space and facets. Slight bulging disc and hypertrophic changes are seen with indentation on the thecal sac and no significant compromise t o the thecal sac. L5-S1: No appreciable compromise to the thecal sac, or the exiting nerve roots is seen. The neural foramina and lateral recesses are patent bilaterally. CONCLUSION: Slight neural foramina compromise bilateral L2-L3, bilateral L3-L4, bilateral L4-L5 w ithout any significant thecal sac stenosis. Cristal Whiting MD on November 05, 2016 at 18:28 Board Certified Radiologist. This report was verified electronically.
[2016-11-05] MEDS ORDERED: DEXAMETHASONE SOD PHOS 20 MG/5 ML VIAL IV PUSH ONE (19:15)
[2016-11-05 19:25] VITALS: BP 129/86; PULSE 98; RESP 17; TEMP 98.9; O2SAT 96
--- NOTE | 2016-11-05 19:57 | MB ---
cc: EMY MEDRANO M.D. DATE OF CONSULTATION: 11/05/2016. HISTORY OF PRESENT ILLNESS: The patient has been followed by Dr. Mallory for seizures. He came in. He was on Keppra 500 twice a day. She had recommended increasing him to 750 twice a day. He was found to have a cervical spinal stenosis. He had been followed by Dr. Dior and had surgery for a spinal cord compression at C4-5. He said he could wiggle his toes after the operation, though cannot over the last day, although he has been seen by the guards who take care of him to be moving his legs and feet including in the CT scanner tonight he evidently was moving his feet somewhat. 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 I had seen him, I believe, for possible seizure at [facility] a few months ago, and I will have to review those films. He had an MRI of his lumbar spine tonight, which was negative. His thoracic spine results are still pending, I cannot look at those yet. His cervical spine MRI shows improvement postop, ___ disc was better, still I would say a moderately severe spinal stenosis at that level from diffuse narrowing but improved from prior. CBC several days ago was normal. Basic metabolic profile on the was also normal. NEUROLOGICAL EXAMINATION: Cranial nerves are normal. He gives a poor effort throughout bilateral upper extremities. His finger extensors were normal on the left. He has give-way weakness on the right but it appears to be at least a 4/5. The same thing with the triceps. He is about a 4-/5 bilaterally but very poor effort with give-way weakness and the same thing with the deltoids, about a 4-/5 bilaterally. Bilateral lower extremities are totally flaccid. No movement there, even with a pinch. DTRs are 3+ and symmetric in bilateral upper and lower extremities in the knee jerks and biceps. There is no ankle clonus. Toes were mute bilaterally. Pin prick, he said he could not feel to the upper part of the thighs bilaterally. He had normal pin prick on his penis, scrotum and his inguinal region and the abdomen. Normal pin prick on the hands bilaterally. Normal pin prick on the face bilaterally. Speech is fluent. He is not aphasic. Vibratory sense was absent in the lower extremities bilaterally. Proprioception was absent at the toes bilaterally, present in the fingers. IMPRESSION: Bilateral lower extremity weakness. It is a little bit unclear what he can and cannot do and if there is any secondary gain as the people who have been sitting him from the [facility] have noticed he does move his legs sometimes. We could consider some steroids. I will clear that by neurosurgery. He is already on some subcutaneous Lovenox. He will continue on his Keppra. Will have Dr. Mallory follow up with him on Monday. An MRI of the brain will be done to make sure there is no bilateral anterior cerebral artery infarcts however I think that is unlikely. Will have to follow up the thoracic MRI results, which are still not back yet and the films will not come up either. MD LOTTIE Romero/ZAYDA /6:56 PM /7:03 PM
--- NOTE | 2016-11-05 19:59 | RADRPT ---
EXAM DATE/TIME: 11/05/2016 17:35 [facility] COMPARISON: No previous studies available for comparison. INDICATIONS : Inability to ambulate. MEDICAL HISTORY : Hypertension. SURGICAL HISTORY : Fusion, cervical. ENCOUNTER: Initial ACUITY: 1 day PAIN SCORE: 0/10 LOCATION: Paraspinal TECHNIQUE: Multiplanar multisequence MRI of the thoracic spine was performed. FINDINGS: The marrow signal appears intact. No significant compression deformities are seen. No significant c ord compression is identified. The spinal cord appears intact. Slight degenerative changes are seen within the disc space and facets at multiple levels. T1-T2: No appreciable compromise to the thecal sac, spinal cord, or the exiting nerve roots are seen. The neural foramina are grossly patent bilaterally. T2-T3: No appreciable compromise to the thecal sac, spinal cord, or the exiting nerve roots are seen. The neural foramina are grossly patent bilaterally. T3-T4: No appreciable compromise to the thecal sac, spinal cord, or the exiting nerve roots are seen. The neural foramina are grossly patent bilaterally. T4-T5: No appreciable compromise to the thecal sac, spinal cord, or the exiting nerve roots are seen. The neural foramina are grossly patent bilaterally. T5-T6: No appreciable compromise to the thecal sac, spinal cord, or the exiting nerve roots are seen. The neural foramina are grossly patent bilaterally. T6-T7: No appreciable compromise to the thecal sac, spinal cord, or the exiting nerve roots are seen. The neural foramina are grossly patent bilaterally. T7-T8: No appreciable compromise to the thecal sac, spinal cord, or the exiting nerve roots are seen. The neural foramina are grossly patent bilaterally. T8-T9: No appreciable compromise to the thecal sac, spinal cord, or the exiting nerve roots are seen. The neural foramina are grossly patent bilaterally. T9-T10: No appreciable compromise to the thecal sac, spinal cord, or the exiting nerve roots are see n. The neural foramina are grossly patent bilaterally. T10-T11: No appreciable compromise to the thecal sac, spinal cord, or the exiting nerve roots are se en. The neural foramina are grossly patent bilaterally. T11-T12: No appreciable compromise to the thecal sac, spinal cord, or the exiting nerve roots are se en. The neural foramina are grossly patent bilaterally. T12-L1: No appreciable compromise to the thecal sac, spinal cord, or the exiting nerve roots are s een. The neural foramina are grossly patent bilaterally. CONCLUSION: Slight degenerative changes without any significant compromise to the thecal sac or the exiting nerve roots. Cristal Whiting MD on November 05, 2016 at 19:57 Board Certified Radiologist. This report was verified electronically.
--- NOTE | 2016-11-05 21:32 | RADRPT ---
EXAM DATE/TIME: 11/05/2016 20:52 [facility] COMPARISON: No previous studies available for comparison. INDICATIONS : Inability to ambulate. MEDICAL HISTORY : Hypertension. SURGICAL HISTORY : Fusion, cervical. ENCOUNTER: Initial ACUITY: 1 day PAIN SCORE: 0/10 LOCATION: cranial TECHNIQUE: Multiplanar, multisequence MRI of the brain was performed without contrast. FINDINGS: There is no evidence for intracranial hemorrhage, mass effect, mass lesions, edema, or extra-axial fl uid collections. The ventricles are normal size for the patient's age. There are no signs of acute infarction for technique. The diffusion portion is unremarkable. CONCLUSION: Unremarkable study. Cristal Whiting MD on November 05, 2016 at 21:29 Board Certified Radiologist. This report was verified electronically.
[2016-11-06] VITALS: BP 126/82; PULSE 88; RESP 16; TEMP 97.7; O2SAT 96
[2016-11-06] MEDS: ENOXAPARIN SODIUM 30 MG/0.3 ML SYRINGE SQ SCH ×2 (00:48→14:26)
[2016-11-06] MEDS: DEXAMETHASONE SOD PHOS 4 MG/ML VIAL IV PUSH SCH ×4 (00:49→17:25)
[2016-11-06] MEDS: ACETAMINOPHEN/HYDROcodone 325 MG/10 MG TAB PO PRN ×4 (02:43→20:11)
[2016-11-06] MEDS: HYDROmorphone HCL PF 1 MG/ML VIAL IV PRN ×4 (05:31→22:22)
[2016-11-06 08:00] VITALS: BP 128/85; PULSE 106; RESP 17; TEMP 97.1; O2SAT 96
[2016-11-06] MEDS: GABAPENTIN 300 MG CAP PO SCH ×3 (08:49→17:25)
[2016-11-06] MEDS: PANTOPRAZOLE SOD 40 MG DELAYED RELEASE TAB PO SCH (08:50)
[2016-11-06] MEDS: LACTULOSE SYRUP 20 GM/30 ML CUP PO SCH (08:50)
[2016-11-06] MEDS: DOCUSATE SODIUM 100 MG CAP PO SCH (08:50)
[2016-11-06] MEDS: SODIUM CHLORIDE 0.9% FLUSH 5 ML FLUSH IVF SCH ×2 (08:50→20:12)
[2016-11-06] MEDS: levETIRAcetam 1000 MG INJ 100 ML IV SCH (08:51)
--- NOTE | 2016-11-06 10:01 | HHI.PR ---
Objective Vital Signs Date Time Temp Pulse Resp B/P Pulse Ox O2 Delivery O2 Flow Rate FiO2 11/06/16 08:00 97.1 106 17 128/85 96 11/06/16 00:00 97.7 88 16 126/82 96 11/05/16 19:25 98.9 98 17 129/86 96 11/05/16 18:37 Room Air 11/05/16 16:00 97.2 100 18 131/89 96 11/05/16 12:00 96.9 72 18 147/86 97 I/O 11/05/16 11/05/16 11/05/16 11/06/16 11/06/16 11/06/16 07:00 15:00 23:00 07:00 15:00 23:00 Intake Total 480 ml 1200 ml 480 ml 240 ml Output Total 700 ml 300 ml 300 ml Balance -220 ml 1200 ml 180 ml -60 ml Intake Oral 480 ml 1200 ml 480 ml 240 ml Output Urine Total 700 ml 300 ml 300 ml # Voids 4 # Bowel Movements 0 0 0 0 Result Diagram: 11/03/1643111/03/16431 Objective Remarks bue nl strength now still no movement ble with one beat left ankle clonus this am Assessment and Plan Assessment and Plan imp arms better not ble on steroids t spine mri neg i will check my [facility] notes and see if he had similar complaints over there in past dr weir in am Giovanny Ohara MD Nov 06, 2016 10:01
[2016-11-06 12:00] VITALS: BP 131/79; PULSE 92; RESP 17; TEMP 96.9; O2SAT 95
[2016-11-06 16:00] VITALS: BP 141/84; PULSE 94; RESP 18; TEMP 97.4; O2SAT 96
[2016-11-06] MEDS ORDERED: MAGNESIUM CITRATE SOLN 300 ML BTL PO ONE (16:00)
--- NOTE | 2016-11-06 16:01 | HHI.PR ---
Subjective Subjective Notes RN reports she saw patient moving his legs Patient reports he is unable to move his legs Complains about hospital food, refusing daily Lactulose. Objective Vitals/I&O Vital Signs Date Time Temp Pulse Resp B/P Pulse Ox O2 Delivery O2 Flow Rate FiO2 11/06/16 12:00 96.9 92 17 131/79 95 11/06/16 08:45 Room Air 11/04/16 08:01 21 11/03/16 20:37 4.00 Labs Laboratory Tests Test 11/02/16 11/03/16 04:04 04:32 Neutrophils (%) (Auto) 88.7 % Lymphocytes (%) (Auto) 8.1 % Monocytes (%) (Auto) 3.0 % Eosinophils (%) (Auto) 0.1 % Basophils (%) (Auto) 0.1 % Neutrophils # (Auto) 10.6 TH/MM3 Lymphocytes # (Auto) 1.0 TH/MM3 Monocytes # (Auto) 0.4 TH/MM3 Eosinophils # (Auto) 0.0 TH/MM3 Basophils # (Auto) 0.0 TH/MM3 CBC Comment DIFF FINAL Differential Comment Total Bilirubin 0.2 MG/DL Aspartate Amino Transf 20 U/L (AST/SGOT) Alanine Aminotransferase 34 U/L (ALT/SGPT) Alkaline Phosphatase 122 U/L Total Protein 7.3 GM/DL Albumin 2.9 GM/DL White Blood Count 11.0 TH/MM3 Red Blood Count 4.59 MIL/MM3 Hemoglobin 12.3 GM/DL Hematocrit 37.9 % Mean Corpuscular Volume 82.7 FL Mean Corpuscular Hemoglobin 26.8 PG Mean Corpuscular Hemoglobin 32.4 % Concent Red Cell Distribution Width 18.5 % Platelet Count 306 TH/MM3 Mean Platelet Volume 8.2 FL Sodium Level 141 MEQ/L Potassium Level 4.0 MEQ/L Chloride Level 105 MEQ/L Carbon Dioxide Level 31.1 MEQ/L Anion Gap 5 MEQ/L Blood Urea Nitrogen 7 MG/DL Creatinine 0.70 MG/DL Estimat Glomerular Filtration 120 ML/MIN Rate Random Glucose 64 MG/DL Calcium Level 8.6 MG/DL Magnesium Level 2.1 MG/DL Radiology Last Impressions Cervical Spine X-Ray 11/01/16 0000 Signed Impressions: Service Date/Time: Tuesday, November 01, 2016 14:59 - CONCLUSION: Limited images as detailed above. Jeremie Clay Jr., MD Cervical Spine MRI 10/31/161856 Signed Impressions: Service Date/Time: Monday, October 31, 2016 19:29 - CONCLUSION: Large disc herniation causing significant spinal stenosis and minimal increased signal in the right lateral half of the cord. MD AMINATA ReddyR Thoracic Spine CT 10/31/161834 Signed Impressions: Service Date/Time: Monday, October 31, 2016 18:39 - CONCLUSION: Minimal Schmorl' s type endplate depression at T6, negative for acute traumatic injury. MD AMINATA ReddyR Lumbar Spine CT 10/31/161834 Signed Impressions: Service Date/Time: Monday, October 31, 2016 18:39 - CONCLUSION: Degenerative changes, negative for acute traumatic injury. MD AMINATA ReddyR Head CT 10/31/161834 Signed Impressions: Service Date/Time: Monday, October 31, 2016 18:39 - CONCLUSION: Negative for acute traumatic injury. MD AMINATA ReddyR Chest X-Ray 10/31/161834 Signed Impressions: Service Date/Time: Monday, October 31, 2016 18:22 - CONCLUSION: Artifact from backboard otherwise negative for pneumothorax. MD AMINATA ReddyR Chest CT 10/31/161834 Signed Impressions: Service Date/Time: Monday, October 31, 2016 18:48 - CONCLUSION: Emphysematous changes otherwise negative.. MD PRIMO Reddy Cervical Spine CT 10/31/161834 Signed Impressions: Service Date/Time: Monday, October 31, 2016 18:43 - CONCLUSION: There are spinal stenosis at C4-C5 and moderate to severe spinal stenosis at C5-C6. MRI is pending. MD PRIMO Reddy Abdomen/Pelvis CT 10/31/161834 Signed Impressions: Service Date/Time: Monday, October 31, 2016 18:48 - CONCLUSION: Negative for acute traumatic injury. MD PRIMO Reddy Pelvis X-Ray 10/31/16 0000 Signed Impressions: Service Date/Time: Monday, October 31, 2016 18:22 - CONCLUSION: Artifact from backboard otherwise negative for fracture.. Luis Oro MD FACR Narrative Exam GENERAL: 46-year-old well-nourished, well developed male lying in bed. SKIN: Warm and dry. HEAD: Normocephalic. ENT: No nasal bleeding or discharge. Mucous membranes pink and moist. NECK: Trachea midline. No JVD. Cervical collar in place. CARDIOVASCULAR: Regular rate and rhythm. RESPIRATORY: No accessory muscle use. Lungs clear to auscultation. Breath sounds equal bilaterally. GASTROINTESTINAL: Abdomen soft, non-tender, nondistended. + BS. MUSCULOSKELETAL: Extremities without cyanosis, or edema. No obvious deformities. + Babinski. + pulses x4 extremities NEUROLOGICAL: Awake and alert. Normal speech. A/P Problem List: (1) Seizure (2) Status post cervical arthrodesis Assessment and Plan INJURIES: Spinal cord injury Spinal stenosis: C4-5, C5-6 DISK herniation causing significant spinal stenosis w/ minimal increased signal in the RIGHT lateral half of the cord 11/01: C4-5, C5-6 anterior fusion Diet: Heart healthy, tolerating Pulmonary: IS Pain: [place], Neurontin, Dilaudid IV Activity: OK OOB.. PT and OT x 7 days/week GI: Protonix Bowel: Soraida-colace. MOM. Lactulose daily. Senna. Bisacodyl. Refusing daily Lactulose. No BM yet. Mag citrate x1. DVT: SCD's. Lovenox 30 BID Spinal cord injury, Spinal stenosis. C4-5, C5-6, DISK herniation causing significant spinal stenosis. w/ minimal increased signal in the RIGHT lateral half of the cord. Neurosurgery consulted and assisting with management and care 11/01: C4-5, C5-6 anterior fusion PT and OT ordered and intensified to 7 days a week to promote progress Encourage out of bed Pain management MRI C,L,T: Negative Neurosurgery has cleared the patient for discharge, however patient is having difficulty with ambulation. Seizures Neurology consulted and assisting with management and care Serial neuro checks Seizure precautions PO Keppra Plan of care discussed patient at bedside. Case management consulted to assist discharge planning. Plan for [facility] ambulating better. Pal Fuentes Nov 06, 2016 16:01
[2016-11-06 20:00] VITALS: BP 128/81; PULSE 79; RESP 18; TEMP 96.8; O2SAT 95
[2016-11-06] MEDS: levETIRAcetam 500 MG TAB PO SCH (20:11)
[2016-11-06] MEDS: DOCUSATE SODIUM 50 MG/SENNA 8.6 MG TAB PO SCH (20:12)
[2016-11-07] VITALS: BP 128/80; PULSE 77; RESP 18; TEMP 96.6; O2SAT 97
[2016-11-07] MEDS: DEXAMETHASONE SOD PHOS 4 MG/ML VIAL IV PUSH SCH ×3 (00:19→11:59)
[2016-11-07] MEDS: ACETAMINOPHEN/HYDROcodone 325 MG/10 MG TAB PO PRN ×3 (00:20→11:59)
[2016-11-07] MEDS: ENOXAPARIN SODIUM 30 MG/0.3 ML SYRINGE SQ SCH ×2 (03:29→14:25)
[2016-11-07] MEDS: HYDROmorphone HCL PF 1 MG/ML VIAL IV PRN ×2 (03:29→08:53)
[2016-11-07 07:54] VITALS: BP 118/83; PULSE 62; RESP 16; TEMP 95.6; O2SAT 96
[2016-11-07] MEDS: levETIRAcetam 500 MG TAB PO SCH (08:52)
[2016-11-07] MEDS: PANTOPRAZOLE SOD 40 MG DELAYED RELEASE TAB PO SCH (08:52)
[2016-11-07] MEDS: GABAPENTIN 300 MG CAP PO SCH ×2 (08:52→11:59)
[2016-11-07] MEDS: DOCUSATE SODIUM 50 MG/SENNA 8.6 MG TAB PO SCH (08:56)
[2016-11-07] MEDS: SODIUM CHLORIDE 0.9% FLUSH 5 ML FLUSH IVF SCH (08:57)
[2016-11-07] MEDS: LACTULOSE SYRUP 20 GM/30 ML CUP PO SCH (08:57)
--- NOTE | 2016-11-07 10:57 | HHI.NSPN ---
(Maria E Wallace) Note Status Status: Progress Note (Maria E Wallace) Interval History Interval History Mr. Sanchez s/p C4-5, C5-6 anterior cervical discectomy, interbody arthodhesis using PEEK cage filled with autologous bone graft, Simplicity plate and screws for cord compression with myelopathy. 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 Undergone MRIs Brain, C, T, and L spine which were unremarkable. Nursing reports witnessed pt move legs, also today withdrew legs 2/5 to nailbed pressure. Neurology following. (Maria E Wallace) Labs, Micro, & Vital Signs Results Date Time Temp Pulse Resp B/P Pulse Ox O2 Delivery O2 Flow Rate FiO2 11/07/16 07:54 95.6 62 16 118/83 96 11/07/16 00:00 96.6 77 18 128/80 97 11/06/16 20:00 96.8 79 18 128/81 95 11/06/16 18:50 Room Air 11/06/16 16:00 97.4 94 18 141/84 96 11/06/16 12:00 96.9 92 17 131/79 95 11/07/16 07:00 Intake Total 1920 ml Output Total 2500 ml Balance -580 ml Constitutional Vital Signs Date Time Temp Pulse Resp B/P Pulse Ox O2 Delivery O2 Flow Rate FiO2 11/07/16 07:54 95.6 62 16 118/83 96 11/07/16 00:00 96.6 77 18 128/80 97 11/06/16 20:00 96.8 79 18 128/81 95 11/06/16 18:50 Room Air 11/06/16 16:00 97.4 94 18 141/84 96 11/06/16 12:00 96.9 92 17 131/79 95 11/07/16 07:00 Intake Total 1920 ml Output Total 2500 ml Balance -580 ml (Maria E Wallace) Review of Systems/Exam Exam Alert, awake. Neck: immobilized by [place] J collar. Motor: moves upper extremities 3/5. No movement to lower extremities to commands, however today withdrew b/l legs 2/5 with nailbed pressure Sensory: reports gross sensation to light touch to legs proximally greater than distal No ankle clonus. Plantars neutral b/l. (Maria E Wallace) Medications Current Medications Current Medications Medications (Trade) Dose Ordered Sig/Mariela Route PRN Reason Start Time Stop Time Status Last Admin Dose Admin Ondansetron HCl (Zofran Inj) 4 mg Q6H PRN IV NAUSEA OR VOMITING 10/31/16 19:15 11/01/16 20:14 Magnesium Hydroxide (Milk Of Magnesia Liq) 30 ml Q12H PRN PO MILD - MODERATE CONSTIPATION 10/31/16 19:15 11/04/16 21:34 Sennosides (Senokot) 17.2 mg Q12H PRN PO MODERATE - SEVERE CONSTIPATION 10/31/16 19:15 Bisacodyl (Dulcolax Supp) 10 mg DAILY PRN RECTAL SEVERE CONSITIPATION 10/31/16 19:15 Lactulose (Lactulose Liq) 30 ml DAILY PRN PO SEVERE CONSITIPATION 10/31/16 19:15 IV Flush (NS Flush) 2 ml UNSCH PRN IVF FLUSH AFTER USING IV ACCESS 11/01/16 17:15 IV Flush (NS Flush) 2 ml BID IVF 11/01/16 21:00 11/07/16 08:57 Pantoprazole Sodium (Protonix) 40 mg DAILY PO 11/02/16 09:00 11/07/16 08:52 Acetaminophen/ Hydrocodone Bitart ([place] 10-325 Mg) 1 tab Q4H PRN PO PAIN SCALE 1 TO 5 11/01/16 17:15 11/02/16 21:47 Acetaminophen/ Hydrocodone Bitart ([place] 10-325 Mg) 2 tab Q4H PRN PO PAIN SCALE 6 TO 10 11/01/16 17:15 11/07/16 06:45 Acetaminophen (Tylenol) 650 mg Q4H PRN PO TEMPERATURE > 101.5 F 11/01/16 17:15 Hydromorphone HCl (Dilaudid Pf Inj) 1 mg Q2H PRN IV FOR PAIN 11/01/16 23:45 11/07/16 08:53 Enoxaparin Sodium (Lovenox Inj) 30 mg Q12H SQ 11/02/16 14:00 11/07/16 03:29 Gabapentin (Neurontin) 300 mg TID PO 11/04/16 18:00 11/07/16 08:52 Lactulose (Lactulose Liq) 30 ml DAILY PO 11/04/16 13:45 11/04/16 13:45 Dexamethasone Sodium Phosphate (Decadron Inj) 4 mg Q6HR IV PUSH 11/06/16 00:00 11/07/16 06:44 Levetriacetam (Keppra) 500 mg Q12HR PO 11/06/16 21:00 11/07/16 08:52 Senna/Docusate Sodium (Soraida-Colace) 2 tab BID PO 11/06/16 21:00 (Maria E Wallace) Medical Decision Making MDM Remarks 46 y/o male s/p C4-5, C5-6 ACDF for large disc extrusions with cord compression and myelopathy new onset of paraplegia, on examination today pt withdrew b/l legs (Maria E Wallace) Plan Plan Remarks MRI Brain, C, T, and L spine over the weekend unremarkable maintain cervical collar for 3 weeks post-op f/u xrays c spine in 3 weeks post-op cont therapy Neurology following (Maria E Wallace) Attending Statement The exam, history, and the medical decision-making described in the above note were completed with the assistance of the mid-level provider. I reviewed and agree with the findings presented. I attest that I had a [id number] encounter with the patient on the same day, and personally performed and documented my assessment and findings in the medical record. (Christian Dior MD) Maria E Wallace Nov 07, 2016 10:57 Christian Dior MD Nov 07, 2016 12:36
[2016-11-07 11:50] VITALS: BP 135/72; PULSE 78; RESP 17; TEMP 96.6; O2SAT 95
--- NOTE | 2016-11-07 14:37 | HHI.DS ---
Discharge Summary Admission Date Oct 31, 2016 at 19:01 Discharge Date: Nov 07, 2016 Admitting Diagnosis suspected spinal cord contusion, seizure, mechanical fall (1) Seizure (2) Status post cervical arthrodesis Brief History S/P Trauma: Fall CBC/BMP: 11/03/16 0432 11/03/16 0432 Imaging Last Impressions Thoracic Spine MRI 11/05/16 0000 Signed Impressions: Service Date/Time: Saturday, November 05, 2016 17:35 - CONCLUSION: Slight degenerative changes without any significant compromise to the thecal sac or the exiting nerve roots. Cristal Whiting MD Lumbar Spine MRI 11/05/16 0000 Signed Impressions: Service Date/Time: Saturday, November 05, 2016 17:35 - CONCLUSION: Slight neural foramina compromise bilateral L2-L3, bilateral L3-L4, bilateral L4-L5 without any significant thecal sac stenosis. Cristal Whiting MD Cervical Spine MRI 11/05/16 0000 Signed Impressions: Service Date/Time: Saturday, November 05, 2016 17:35 - CONCLUSION: 1. Significant prevertebral swelling and edema mostly be postsurgical change. 2. Previously seen large disc herniation C4-C5 has been resected surgically with slight indentation on the thecal sac without any significant stenosis. 3. Moderate thecal sac stenosis C5-6 with slight flattening of the spinal cord. 4. Slight neural foramina compromise bilaterally C4-C5, bilateral C6-C7. Cristal Whiting MD Brain MRI 11/05/16 0000 Signed Impressions: Service Date/Time: Saturday, November 05, 2016 20:52 - CONCLUSION: Unremarkable study. Cristal Whiting MD Cervical Spine X-Ray 11/01/16 0000 Signed Impressions: Service Date/Time: Tuesday, November 01, 2016 14:59 - CONCLUSION: Limited images as detailed above. Jeremie Clay Jr., MD Thoracic Spine CT 10/31/161834 Signed Impressions: Service Date/Time: Monday, October 31, 2016 18:39 - CONCLUSION: Minimal Schmorl' s type endplate depression at T6, negative for acute traumatic injury. Luis Oro MD FACR Lumbar Spine CT 10/31/161834 Signed Impressions: Service Date/Time: Monday, October 31, 2016 18:39 - CONCLUSION: Degenerative changes, negative for acute traumatic injury. Luis Oro MD FACR Head CT 10/31/161834 Signed Impressions: Service Date/Time: Monday, October 31, 2016 18:39 - CONCLUSION: Negative for acute traumatic injury. Luis Oro MD FACR Chest X-Ray 10/31/161834 Signed Impressions: Service Date/Time: Monday, October 31, 2016 18:22 - CONCLUSION: Artifact from backboard otherwise negative for pneumothorax. MD AMINATA ReddyR Chest CT 10/31/161834 Signed Impressions: Service Date/Time: Monday, October 31, 2016 18:48 - CONCLUSION: Emphysematous changes otherwise negative.. Luis Oro MD FACR Cervical Spine CT 10/31/161834 Signed Impressions: Service Date/Time: Monday, October 31, 2016 18:43 - CONCLUSION: There are spinal stenosis at C4-C5 and moderate to severe spinal stenosis at C5-C6. MRI is pending. Luis Oro MD FACR Abdomen/Pelvis CT 10/31/161834 Signed Impressions: Service Date/Time: Monday, October 31, 2016 18:48 - CONCLUSION: Negative for acute traumatic injury. Luis Oro MD FACR Pelvis X-Ray 10/31/16 0000 Signed Impressions: Service Date/Time: Monday, October 31, 2016 18:22 - CONCLUSION: Artifact from backboard otherwise negative for fracture.. Luis Oro MD FACR PE at Discharge GENERAL: 46-year-old well-nourished, well developed male lying in bed. SKIN: Warm and dry. HEAD: Normocephalic. ENT: No nasal bleeding or discharge. Mucous membranes pink and moist. NECK: Trachea midline. No JVD. Cervical collar in place. CARDIOVASCULAR: Regular rate and rhythm. RESPIRATORY: No accessory muscle use. Lungs clear to auscultation. Breath sounds equal bilaterally. GASTROINTESTINAL: Abdomen soft, non-tender, nondistended. + BS. MUSCULOSKELETAL: Extremities without cyanosis, or edema. No obvious deformities. + Babinski. + pulses x4 extremities. Moves BLE to noxious stimuli. BUE 3/5 , BLE 2/5 strength. NEUROLOGICAL: Awake and alert. Normal speech. Hospital Course [place]: Seized and fell off a bunk bed approximately 6 feet. While post-ictal he stumbled and fell off a balcony of approximately 12 feet. ? LOC. INJURIES: Spinal cord injury Spinal stenosis: C4-5, C5-6 DISK herniation causing significant spinal stenosis w/ minimal increased signal in the RIGHT lateral half of the cord 11/01: C4-5, C5-6 anterior fusion Diet: Heart healthy, tolerating Pulmonary: IS Pain: [place], Neurontin Activity: OK OOB.. PT and OT x 7 days/week GI: Protonix Bowel: Soraida-colace. MOM. Lactulose daily. Senna. Bisacodyl. Refusing daily Lactulose. No BM yet. Mag citrate x1. DVT: SCD's. Lovenox 30 BID Spinal cord injury, Spinal stenosis. C4-5, C5-6, DISK herniation causing significant spinal stenosis. w/ minimal increased signal in the RIGHT lateral half of the cord. Neurosurgery consulted and assisting with management and care 11/01: C4-5, C5-6 anterior fusion PT and OT ordered and intensified to 7 days a week to promote progress Encourage out of bed Pain management MRI C,L,T: Negative Neurosurgery has cleared the patient for discharge, F/U as outpatient Maintain cervical collar Seizures Neurology consulted Seizure precautions PO Keppra Plan of care discussed patient at bedside. Patient is clear from trauma surgery standpoint to safely discharge back to group home. Pt Condition on Discharge: Stable Discharge Disposition: Dis to [employer] Discharge Instructions DIET: Follow Instructions for: Heart Healthy Diet Activities you can perform: Weight Bearing as [place] Activities to Avoid: Concussion Sports, Lifting/Bending, Strenuous Activity Other Activity Instructions: maintain cervical collar for 3 weeks post-op f/u xrays c spine in 3 weeks post-op Pal Fuentes [facility] Nov 07, 2016 14:37
== END 2016-11-07 15:31 | DRG 472 ==
LOC: NEPI 18:27 → EDBD 19:01 → EEVIPCON 19:01 → NEDA 19:01 → N03B 20:00 → N06B 11-03 21:44
PROVIDERS: ADMIT Surgery Trauma Surgery; ATTEND Surgery Trauma Surgery
PROC: 0RB30ZZ Excision of Cervical Vertebral Disc, Open Approach (ICD-10-PCS; 2016-11-01)
PROC: 0RG20A0 Fusion of 2 or more Cervical Vertebral Joints with Interbody Fusion Device, Anterior Approach, Anterior Column, Open Approach (ICD-10-PCS; principal; 2016-11-01 14:33)
DX: S13.151A Dislocation of C4/C5 cervical vertebrae, initial encounter (principal); G82.20 Paraplegia, unspecified; S14.124A Central cord syndrome at C4 level of cervical spinal cord, initial encounter; G40.409 Other generalized epilepsy and epileptic syndromes, not intractable, without status epilepticus; M48.02 Spinal stenosis, cervical region; S13.161A Dislocation of C5/C6 cervical vertebrae, initial encounter; W06.XXXA Fall from bed, initial encounter; W17.89XA Other fall from one level to another, initial encounter; Y92.149 Unspecified place in prison as the place of occurrence of the external cause; Z65.3 Problems related to other legal circumstances
CPT/HCPCS: 70450; 70551; 71010; 71260; 72040; 72125; 72128; 72131; 72141; 72146; 72148; 72170; 74177; 76000; 80048; 80053; 82435; 82565; 82947; 83735; 84132; 84295; 84520; 85025; 85027; 85610; 85730; 86850; 86900; 86901; 87641; 94150; 95819; 96374; 96375; 99291; C1713; G0390; J0131; J0690; J1100; J1170; J1580; J1650; J1953; J2250; J2270; J2370; J2405; J2710; J3010; J3370; J3480; J7030; J7120; L0150; L0172; Q9967